=== PATIENT | male | born 1980 | race Caucasian/White ===

== ENCOUNTER 2016-11-18 09:36 | Inpatient (IN) | payer OTHER ==
[2016-11-18 10:16] VITALS: BMI 25.2
--- NOTE | 2016-11-18 17:53 | HP ---
Admission ROS [facility] Chief Complaint: I WANT TO GO TO REHAB Allergies/Adverse Reactions: Allergies Allergy/AdvReac Type Severity Reaction Status Date / Time No Known Allergies Allergy Verified 11/18/16 16:13 History of Present Illness: 35 YEARS OLD MALE WITH LONG HISTORY OF ALCOHOL OPIATE BENZO NICOTINE DEPENDENCE , HAS HEPATITIS C IS ADMITTED TO REHAB Exam Limitations: No Limitations - Ebola screening Have you traveled outside of the country in the last 21 days: No Have you had contact with anyone from an Ebola affected area: No Have you been sick,other than usual withdrawal symptoms: No Do you have a fever: No - Review of Systems Constitutional: Changes in sleep, Weight Stable EENT: reports: No Symptoms Reported Respiratory: reports: No Symptoms reported Cardiac: reports: No Symptoms Reported GI: reports: No Symptoms Reported : reports: No Symptoms Reported, Other (RIGHT KIDNEY 09/2016 "NO" EFFECT ADL'S ) Musculoskeletal: reports: No Symptoms Reported Integumentary: reports: No Symptoms Reported Neuro: reports: No Symptoms reported Endocrine: reports: No Symptoms Reported Hematology: reports: No Symptoms Reported Psychiatric: reports: Judgement Intact, Mood/Affect Appropiate, Orientated x3 Other Systems: Reviewed and Negative Patient History - Patient Medical History Hx Anemia: No Hx Asthma: No Hx Chronic Obstructive Pulmonary Disease (COPD): No Hx Cancer: No Hx Cardiac Disorders: No Hx Congestive Heart Failure: No Hx Hypertension: No Hx Hypercholesterolemia: No Hx Pacemaker: No HX Cerebrovascular Accident: No Hx Seizures: No Hx Dementia: No Hx Diabetes: No Hx Gastrointestinal Disorders: No Hx Liver Disease: No Hx Genitourinary Disorders: No Hx Sexually Transmitted Disorders: No Hx Renal Disease (ESRD): No Hx Thyroid Disease: No Hx Human Immunodeficiency Virus (HIV): No Hx Hepatitis C: Yes Hx Depression: No Hx Suicide Attempt: No Hx Bipolar Disorder: No Hx Schizophrenia: No - Patient Surgical History Past Surgical History: No Hx Neurologic Surgery: No Hx Cataract Extraction: No Hx Cardiac Surgery: No Hx Lung Surgery: No Hx Breast Surgery: No Hx Breast Biopsy: No Hx Abdominal Surgery: No Hx Appendectomy: No Hx Cholecystectomy: No Hx Genitourinary Surgery: No Hx Orthopedic Surgery: No - PPD History Previous Implant?: Yes Documented Results: Negative w/proof Implanted On Prior R Admission?: Yes Date: 04/22/12 PPD to be Administered?: Yes - Smoking Cessation Smoking history: Current every day smoker Have you smoked in the past 12 months: Yes Aproximately how many cigarettes per day: 30 Cigars Per Day: 0 Hx Chewing Tobacco Use: No Initiated information on smoking cessation: Yes 'Breaking Loose' booklet given: 11/18/16 - Substance & Tx. History Hx Alcohol Use: Yes Hx Substance Use: Yes Substance Use Type: Alcohol, Opiates, Tranquilizers Hx Substance Use Treatment: Yes - Substances Abused Alcohol Route: Oral Frequency: Daily Amount used: VOLKA A LITTLE Age of first use: 15 Date of Last Use: 11/07/16 Alprazolam (Xanax) Route: Oral Frequency: Daily Amount used: 14 MG Age of first use: 20 Date of Last Use: 11/07/16 Heroin Route: Injection Frequency: Daily Amount used: 25 BAGS Age of first use: 15 Date of Last Use: 12/05/16 Family Disease History - Family Disease History Family Disease History: CA: Mother (throat ), Other: Father (kidney ) Admission Physical Exam [facility] - Vital Signs Vital Signs: Vital Signs - 24 hr 11/18/16 10:14 Temperature 97.6 F Pulse Rate 81 Respiratory 18 Rate Blood Pressure 107/71 - Physical General Appearance: Yes: No Apparent Distress, Nourished, Appropriately Dressed HEENTM: Yes: Hearing grossly Normal, Normal ENT Inspection, Normocephalic, Normal Voice Respiratory: Yes: Chest Non-Tender, Lungs Clear, Normal Breath Sounds, No Respiratory Distress, No Accessory Muscle Use Neck: Yes: Supple, Trachea in good position Breast: Yes: Breasts Symetrical Cardiology: Yes: Regular Rhythm, Regular Rate, S1, S2 Abdominal: Yes: Non Tender, Soft Genitourinary: Yes: Within Normal Limits Back: Yes: Normal Inspection Musculoskeletal: Yes: full range of Motion, Gait Steady Extremities: Yes: Normal Range of Motion, Non-Tender Neurological: Yes: Fully Oriented, Alert, Motor Strength 5/5, Normal Mood/Affect , Normal Response Integumentary: Yes: Warm, Track Jose Lymphatic: Yes: Within Normal Limits - Diagnostic (1) Alcohol dependence with uncomplicated withdrawal Current Visit: Yes Status: Acute (2) Nicotine dependence Current Visit: Yes Status: Acute Qualifiers: Nicotine product type: cigarettes Substance use status: in withdrawal Qualified Code(s): F17.213 - Nicotine dependence, cigarettes, with withdrawal (3) Sedative, hypnotic or anxiolytic dependence with withdrawal, uncomplicated Current Visit: Yes Status: Acute (4) Hepatitis C antibody test positive Current Visit: Yes Status: Chronic Comment: scheduled for treatment with primary care physician (5) Encounter for monitoring Suboxone maintenance therapy Current Visit: Yes Status: Acute Comment: SUBOXONE 8-2 MG 2.5 FILM PO DAILY VERIFIED BY PHARMACY PACKAGE Cleared for Admission [facility] - Detox or Rehab [facility] Level of Care: Observation Bed Detox Regimen/Protocol: Not Applicable Claeared for Rehab Admission: Yes [facility] Breath Alcohol Content Breath Alcohol Content: 0 Urine Drug Screen - Results Drug Screen Negative: No Urine Drug Screen Results: MDMA-Ecstasy, BZO-Benzodiazepines
[2016-11-18] MEDS ORDERED: IBUPROFEN 400 MG TABLET (FP) PO PRN (17:56)
[2016-11-18] MEDS ORDERED: MAGNESIUM CITRATE 300 ML BOTTLE PO PRN (17:56)
[2016-11-18] MEDS ORDERED: MAG HYDROX/AL HYDROX/SIMETH 30 ML UNIT-DOSE CUP PO PRN (17:56)
[2016-11-18] MEDS ORDERED: LOPERAMIDE HCL 2 MG CAPSULE PO PRN (17:56)
[2016-11-18] MEDS ORDERED: diphenhydrAMINE HCL 50 MG CAPSULE PO PRN (17:56)
[2016-11-18] MEDS ORDERED: guaiFENesin/D-METHORPHAN HB 10 ML UNIT-DOSE CUPS PO PRN (17:56)
[2016-11-18] MEDS ORDERED: ACETAMINOPHEN 325 MG TABLET (FP) PO PRN (17:56)
[2016-11-18] MEDS ORDERED: hydrOXYzine PAMOATE 50 MG CAPSULE (FP) PO PRN (17:56)
[2016-11-18] MEDS ORDERED: MAGNESIUM HYDROX 2400MG/30ML ORAL SUSPENSION 30 ML CUP PO PRN (17:56)
[2016-11-18] MEDS ORDERED: P-EPHED 60MG/TRIPROLIDI 2.5MG TABLET PO PRN (17:56)
[2016-11-18] MEDS ORDERED: MENTHOL/PHENOL 1 EACH UD MM PRN (17:56)
[2016-11-18] MEDS: THIAMINE HCL 100 MG TABLET (FP) PO SCH (21:14)
[2016-11-18 22:53] LABS: URINE APPEARANCE CLEAR; URINE BILIRUBIN NEGATIVE (NEGATIVE); URINE BLOOD NEGATIVE (NEGATIVE); URINE COLOR LTYELLOW; URINE GLUCOSE (UA) NEGATIVE (NEGATIVE); URINE KETONE NEGATIVE (NEGATIVE); URINE LEUK ESTERASE NEGATIVE (NEGATIVE); URINE NITRITE NEGATIVE (NEGATIVE); URINE PROTEIN NEGATIVE (NEGATIVE); URINE UROBILINOGEN NEGATIVE E.U./dl (0.2-1.0)
[2016-11-19] MEDS ORDERED: BUPRENORPHINE/NALOXONE 8 MG/2 MG FILM PACKET ONE (09:09)
[2016-11-19] MEDS ORDERED: BUPRENORPHINE/NALOXONE 8 MG/2 MG FILM PACKET SL SCH (10:00)
[2016-11-19] MEDS ORDERED: BUPRENORPHINE SL SCH (10:00)
[2016-11-19] MEDS ORDERED: NALOXONE BUPRENORPHINE SL SCH (10:00)
[2016-11-19] MEDS ORDERED: NALOXONE SL SCH (10:00)
[2016-11-19] MEDS: NICOTINE 21 MG/24 HOURS TOPICAL PATCH TD SCH (10:15)
[2016-11-19] MEDS: PRENATAL VITAMINS W/ FOLIC ACID TABLET (FP) PO SCH (10:15)
[2016-11-19] MEDS ORDERED: BUPRENORPHINE/NALOXONE 8 MG/2 MG FILM PACKET SL ONE (11:14)
[2016-11-19] MEDS ORDERED: BUPRENORPHINE/NALOXONE 2 MG/0.5 MG FILM PACKET SL ONE (11:15)
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
[2016-11-19 14:55] LABS: MCH 29.3 pg (25.7-33.7); MCHC 32.7 g/dl (32.0-35.9); MEAN CELL VOLUME 89.6 fl (80-96); MEAN PLT VOLUME 7.6 fl (7.5-11.1); PLATELET COUNT 207 K/MM3 (134-434); RDW 15.3 % (11.9-15.9); WHITE BLOOD COUNT 4.2 K/mm3 (4.0-10.0)
--- NOTE | 2016-11-19 15:38 | EKG ---
Test Reason : Blood Pressure : / mmHG Vent. Rate : 083 BPM Atrial Rate : 083 BPM P-R Int : 164 ms QRS Dur : 092 ms QT Int : 358 ms P-R-T Axes : 073 049 073 degrees QTc Int : 420 ms NORMAL SINUS RHYTHM NORMAL ECG NO PREVIOUS ECGS AVAILABLE Confirmed by SUDHA AYALA MD ([id number]) on 11/19/2016 3:37:33 PM Referred By: Confirmed By:SUDHA AYALA MD
[2016-11-19 15:41] LABS: ALBUMIN 3.6 g/dl (3.4-5.0); ALK PHOS 87 U/L (45-117); ANION GAP 9 (8-16); BILIRUBIN,TOTAL 0.3 mg/dL (0.2-1.0); CO2 28 mmol/L (21-32); GLUCOSE,RANDOM 88 mg/dL (74-106); SGOT/AST 22 U/L (15-37); SGPT/ALT 35 U/L (12-78); TOT PROT 6.6 g/dl (6.4-8.2)
[2016-11-19] MEDS: QUEtiapine FUMARATE 100 MG TABLET (FP) PO SCH (21:33)
[2016-11-19] MEDS: THIAMINE HCL 100 MG TABLET (FP) PO SCH (21:33)
[2016-11-19] MEDS: GABAPENTIN 100 MG CAPSULE (FP) PO SCH (21:33)
[2016-11-20] MEDS: BUPRENORPHINE/NALOXONE 8 MG/2 MG FILM PACKET SL SCH ×2 (06:18→14:43)
[2016-11-20] MEDS: NICOTINE 21 MG/24 HOURS TOPICAL PATCH TD SCH (09:47)
[2016-11-20] MEDS: PRENATAL VITAMINS W/ FOLIC ACID TABLET (FP) PO SCH (09:47)
[2016-11-20] MEDS: GABAPENTIN 100 MG CAPSULE (FP) PO SCH ×3 (09:47→21:16)
[2016-11-20] MEDS ORDERED: BUPRENORPHINE/NALOXONE 8 MG/2 MG FILM PACKET SL SCH ×2 (10:00)
[2016-11-20] MEDS ORDERED: BUPRENORPHINE/NALOXONE 2 MG/0.5 MG FILM PACKET SL SCH ×2 (10:00)
--- NOTE | 2016-11-20 13:57 | PN ---
Psychiatric Progress Note Vital Signs: Vital Signs Period Temp Pulse Resp BP Sys/López Pulse Ox Last 24 Hr 98.0 F 62 16-18 125/68 Date of Session: 11/20/16 Chief Complaint:: "progress update" HPI: patient is addressing opioid, sedative hypnotic, nicotine depebndence comorbid mood disorder. ROS: Hep C. Current Medications: Active Medications Generic Name Dose Route Start Last Admin Trade Name Freq PRN Reason Stop Dose Admin Acetaminophen 650 mg 11/18/16 17:56 Tylenol - PO Q4H PRN PAIN Al Hydroxide/Mg Hydroxide 30 ml 11/18/16 17:56 Mylanta Oral Suspension - PO Q6H PRN DYSPEPSIA Buprenorphine/Naloxone 2 each 11/20/16 20:00 Suboxone 2mg/0.5mg Sl Film - SL 11/26/16 19:59 DAILY@2000 [facility] Buprenorphine/Naloxone 1 each 11/20/16 06:00 11/20/16 06:18 Suboxone 8mg/2mg Sl Film - SL 11/26/16 05:59 1 each DAILY@0600 [facility] Administration Buprenorphine/Naloxone 1 each 11/20/16 14:00 Suboxone 8mg/2mg Sl Film - SL 11/26/16 13:59 DAILY@1400 [facility] Diphenhydramine HCl 50 mg 11/18/16 17:56 Benadryl - PO HSMR1 PRN INSOMNIA Eucalyptus/Menthol/Phenol/Sorbitol 1 each 11/18/16 17:56 Cepastat Lozenge - MM Q4H PRN SORE THROAT Gabapentin 200 mg 11/19/16 22:00 11/20/16 09:47 Neurontin - PO 200 mg BID [facility] Administration Guaifenesin 10 ml 11/18/16 17:56 Robitussin Dm - PO Q6H PRN COUGH Hydroxyzine Pamoate 50 mg 11/18/16 17:56 Vistaril - PO Q4H PRN AGITATION Ibuprofen 400 mg 11/18/16 17:56 Motrin - PO Q6H PRN SEVERE PAIN Loperamide HCl 4 mg 11/18/16 17:56 Imodium - PO Q6H PRN DIARRHEA Magnesium Citrate 300 ml 11/18/16 17:56 Citroma - PO Q48H PRN CONSTIPATION Magnesium Hydroxide 30 ml 11/18/16 17:56 Milk Of Magnesia - PO DAILY PRN CONSTIPATION Nicotine 21 mg 11/19/16 10:00 11/20/16 09:47 Nicoderm Patch - TD 21 mg DAILY BR[facility]ON Administration Nicotine Polacrilex 4 mg 11/18/16 17:56 Nicorette Gum - BC Q2H PRN NICOTINE REPLACEMENT RX Multivit/Folic Acid/Iron 1 tab 11/19/16 10:00 11/20/16 09:47 Vitamins (Sjr) - PO 1 tab DAILY BRANDON Administration Pseudoephedrine/Triprolidine 1 combo 11/18/16 17:56 Actifed - PO TID PRN NASAL CONGESTION Quetiapine Fumarate 100 mg 11/19/16 22:00 11/19/16 21:33 Seroquel - PO 100 mg HS BRANDON Administration Thiamine HCl 100 mg 11/18/16 22:00 11/19/16 21:33 Vitamin B1 - PO 100 mg HS BRANDON Administration Medication(s) Change(s): increase Gabapentin 200 mg po tid Current Side Effect: No Lab tests ordered: No Lab tests reviewed: Yes Provider note:: Patient adjusted well to the unit, he is cooperative with unit rules and regulations, he expressed his frustartion about his Hep c and processed this with the patient. Feeling of anxiety predominated in this session. Psychoeducations and supports provided.Treatment plan discussed, patient agreed with the plan, will continue to monitor progress. Total face to face time:: 35 Mental Status Exam - Mental Status Exam Alert and Oriented to: Time, Place, Person Cognitive Function: Grossly Intact Patient Appearance: Well Groomed Mood: Sad, Anxious Affect: Appropriate Patient Behavior: Cooperative Speech Pattern: Clear, Appropriate Voice Loudness: Normal Thought Process: Intact Thought Disorder: Not Present Hallucinations: Denies Suicidal Ideation: Denies Homicidal Ideation: Denies Insight/Judgement: Fair Sleep: Well Appetite: Good Muscle strength/Tone: Normal Gait/Station: Normal Psychiatric Treatment Plan - Problem List (1) Nicotine dependence Current Visit: Yes Qualifiers: Nicotine product type: cigarettes Substance use status: in withdrawal Qualified Code(s): F17.213 - Nicotine dependence, cigarettes, with withdrawal (2) Opioid dependence Current Visit: Yes (3) Sedative, hypnotic or anxiolytic dependence Current Visit: Yes (4) Mood disorder Current Visit: Yes
[2016-11-20] MEDS: BUPRENORPHINE/NALOXONE 2 MG/0.5 MG FILM PACKET SL SCH (19:54)
[2016-11-20] MEDS: QUEtiapine FUMARATE 100 MG TABLET (FP) PO SCH (21:16)
[2016-11-20] MEDS: THIAMINE HCL 100 MG TABLET (FP) PO SCH (21:16)
[2016-11-21] MEDS: BUPRENORPHINE/NALOXONE 8 MG/2 MG FILM PACKET SL SCH ×2 (06:45→14:20)
[2016-11-21] MEDS: GABAPENTIN 100 MG CAPSULE (FP) PO SCH ×3 (06:45→21:03)
[2016-11-21] MEDS: PRENATAL VITAMINS W/ FOLIC ACID TABLET (FP) PO SCH (10:39)
[2016-11-21] MEDS: NICOTINE 21 MG/24 HOURS TOPICAL PATCH TD SCH (10:42)
[2016-11-21] MEDS: BUPRENORPHINE/NALOXONE 2 MG/0.5 MG FILM PACKET SL SCH (21:00)
[2016-11-21] MEDS: THIAMINE HCL 100 MG TABLET (FP) PO SCH (21:03)
[2016-11-21] MEDS: QUEtiapine FUMARATE 100 MG TABLET (FP) PO SCH (21:03)
[2016-11-22] MEDS: GABAPENTIN 100 MG CAPSULE (FP) PO SCH ×3 (06:26→21:25)
[2016-11-22] MEDS: BUPRENORPHINE/NALOXONE 8 MG/2 MG FILM PACKET SL SCH ×2 (06:26→13:16)
[2016-11-22] MEDS: NICOTINE 21 MG/24 HOURS TOPICAL PATCH TD SCH (10:30)
[2016-11-22] MEDS: PRENATAL VITAMINS W/ FOLIC ACID TABLET (FP) PO SCH (10:31)
[2016-11-22] MEDS: BUPRENORPHINE/NALOXONE 2 MG/0.5 MG FILM PACKET SL SCH (20:35)
[2016-11-22] MEDS: QUEtiapine FUMARATE 100 MG TABLET (FP) PO SCH (21:24)
[2016-11-22] MEDS: THIAMINE HCL 100 MG TABLET (FP) PO SCH (21:24)
[2016-11-23] MEDS: GABAPENTIN 100 MG CAPSULE (FP) PO SCH ×3 (06:36→22:11)
[2016-11-23] MEDS: BUPRENORPHINE/NALOXONE 8 MG/2 MG FILM PACKET SL SCH ×2 (06:36→14:11)
[2016-11-23] MEDS: NICOTINE 21 MG/24 HOURS TOPICAL PATCH TD SCH (10:27)
[2016-11-23] MEDS: PRENATAL VITAMINS W/ FOLIC ACID TABLET (FP) PO SCH (10:27)
--- NOTE | 2016-11-23 15:49 | PN ---
S Progress Note Note: patient c/o insonia, racing thoughts, will increase Seroquel 150 mg po hs, continue to monitor progress.
[2016-11-23] MEDS: THIAMINE HCL 100 MG TABLET (FP) PO SCH (21:34)
[2016-11-23] MEDS: QUEtiapine FUMARATE 50 MG TABLET PO SCH (21:34)
[2016-11-23] MEDS: BUPRENORPHINE/NALOXONE 2 MG/0.5 MG FILM PACKET SL SCH (21:35)
[2016-11-24] MEDS: GABAPENTIN 100 MG CAPSULE (FP) PO SCH ×3 (06:43→21:11)
[2016-11-24] MEDS: BUPRENORPHINE/NALOXONE 8 MG/2 MG FILM PACKET SL SCH ×2 (06:44→14:19)
[2016-11-24] MEDS: NICOTINE 21 MG/24 HOURS TOPICAL PATCH TD SCH (09:42)
[2016-11-24] MEDS: PRENATAL VITAMINS W/ FOLIC ACID TABLET (FP) PO SCH (09:42)
[2016-11-24] MEDS: QUEtiapine FUMARATE 50 MG TABLET PO SCH (21:10)
[2016-11-24] MEDS: BUPRENORPHINE/NALOXONE 2 MG/0.5 MG FILM PACKET SL SCH (21:11)
[2016-11-24] MEDS: THIAMINE HCL 100 MG TABLET (FP) PO SCH (21:11)
[2016-11-25] MEDS: BUPRENORPHINE/NALOXONE 8 MG/2 MG FILM PACKET SL SCH ×2 (06:43→14:19)
[2016-11-25] MEDS: GABAPENTIN 100 MG CAPSULE (FP) PO SCH ×3 (06:43→21:49)
[2016-11-25] MEDS: PRENATAL VITAMINS W/ FOLIC ACID TABLET (FP) PO SCH (10:02)
[2016-11-25] MEDS: NICOTINE 21 MG/24 HOURS TOPICAL PATCH TD SCH (10:02)
[2016-11-25] MEDS: QUEtiapine FUMARATE 50 MG TABLET PO SCH (21:49)
[2016-11-25] MEDS: BUPRENORPHINE/NALOXONE 2 MG/0.5 MG FILM PACKET SL SCH (21:50)
[2016-11-25] MEDS: THIAMINE HCL 100 MG TABLET (FP) PO SCH (21:51)
[2016-11-26] MEDS: GABAPENTIN 100 MG CAPSULE (FP) PO SCH ×3 (06:28→21:51)
[2016-11-26] MEDS: BUPRENORPHINE/NALOXONE 8 MG/2 MG FILM PACKET SL SCH ×2 (06:28→14:06)
[2016-11-26] MEDS: PRENATAL VITAMINS W/ FOLIC ACID TABLET (FP) PO SCH (10:06)
[2016-11-26] MEDS: NICOTINE 21 MG/24 HOURS TOPICAL PATCH TD SCH (10:06)
[2016-11-26] MEDS: BUPRENORPHINE/NALOXONE 2 MG/0.5 MG FILM PACKET SL SCH (19:34)
[2016-11-26] MEDS: THIAMINE HCL 100 MG TABLET (FP) PO SCH (21:51)
[2016-11-26] MEDS: QUEtiapine FUMARATE 50 MG TABLET PO SCH (21:51)
[2016-11-27] MEDS: GABAPENTIN 100 MG CAPSULE (FP) PO SCH ×3 (06:23→21:12)
[2016-11-27] MEDS: BUPRENORPHINE/NALOXONE 8 MG/2 MG FILM PACKET SL SCH ×2 (06:23→14:11)
[2016-11-27] MEDS: PRENATAL VITAMINS W/ FOLIC ACID TABLET (FP) PO SCH (10:03)
[2016-11-27] MEDS: NICOTINE 21 MG/24 HOURS TOPICAL PATCH TD SCH (10:04)
[2016-11-27] MEDS: NICOTINE POLACRILEX 4 MG GUM BC PRN ×2 (10:05→15:39)
[2016-11-27] MEDS: BUPRENORPHINE/NALOXONE 2 MG/0.5 MG FILM PACKET SL SCH (20:05)
[2016-11-27] MEDS: THIAMINE HCL 100 MG TABLET (FP) PO SCH (21:12)
[2016-11-27] MEDS: QUEtiapine FUMARATE 50 MG TABLET PO SCH (21:13)
[2016-11-28] MEDS: BUPRENORPHINE/NALOXONE 8 MG/2 MG FILM PACKET SL SCH ×2 (06:33→14:10)
[2016-11-28] MEDS: GABAPENTIN 100 MG CAPSULE (FP) PO SCH ×3 (06:33→21:24)
[2016-11-28] MEDS: NICOTINE POLACRILEX 4 MG GUM BC PRN ×4 (08:56→21:27)
[2016-11-28] MEDS: PRENATAL VITAMINS W/ FOLIC ACID TABLET (FP) PO SCH (10:35)
[2016-11-28] MEDS: NICOTINE 21 MG/24 HOURS TOPICAL PATCH TD SCH (10:35)
[2016-11-28] MEDS: BUPRENORPHINE/NALOXONE 2 MG/0.5 MG FILM PACKET SL SCH (21:24)
[2016-11-28] MEDS: QUEtiapine FUMARATE 50 MG TABLET PO SCH (21:24)
[2016-11-28] MEDS: THIAMINE HCL 100 MG TABLET (FP) PO SCH (21:24)
[2016-11-29] MEDS: BUPRENORPHINE/NALOXONE 8 MG/2 MG FILM PACKET SL SCH ×2 (06:13→13:14)
[2016-11-29] MEDS: GABAPENTIN 100 MG CAPSULE (FP) PO SCH ×3 (06:14→21:18)
[2016-11-29] MEDS: NICOTINE POLACRILEX 4 MG GUM BC PRN ×2 (08:45→21:21)
[2016-11-29] MEDS: NICOTINE 21 MG/24 HOURS TOPICAL PATCH TD SCH (10:30)
[2016-11-29] MEDS: PRENATAL VITAMINS W/ FOLIC ACID TABLET (FP) PO SCH (10:30)
[2016-11-29] MEDS: QUEtiapine FUMARATE 50 MG TABLET PO SCH (21:18)
[2016-11-29] MEDS: BUPRENORPHINE/NALOXONE 2 MG/0.5 MG FILM PACKET SL SCH (21:19)
[2016-11-29] MEDS: THIAMINE HCL 100 MG TABLET (FP) PO SCH (21:19)
[2016-11-30] MEDS: BUPRENORPHINE/NALOXONE 8 MG/2 MG FILM PACKET SL SCH ×2 (06:04→13:04)
[2016-11-30] MEDS: GABAPENTIN 100 MG CAPSULE (FP) PO SCH ×3 (06:04→21:16)
[2016-11-30] MEDS: NICOTINE POLACRILEX 4 MG GUM BC PRN (09:00)
[2016-11-30] MEDS: NICOTINE 21 MG/24 HOURS TOPICAL PATCH TD SCH (09:35)
[2016-11-30] MEDS: PRENATAL VITAMINS W/ FOLIC ACID TABLET (FP) PO SCH (09:35)
[2016-11-30] MEDS: DOCUSATE SODIUM 100 MG CAPSULE (FP) PO SCH ×2 (13:03→21:16)
[2016-11-30] MEDS: BUPRENORPHINE/NALOXONE 2 MG/0.5 MG FILM PACKET SL SCH (21:00)
[2016-11-30] MEDS: THIAMINE HCL 100 MG TABLET (FP) PO SCH (21:15)
[2016-11-30] MEDS: QUEtiapine FUMARATE 50 MG TABLET PO SCH (21:16)
[2016-12-01] MEDS: BUPRENORPHINE/NALOXONE 8 MG/2 MG FILM PACKET SL SCH ×2 (06:35→14:08)
[2016-12-01] MEDS: DOCUSATE SODIUM 100 MG CAPSULE (FP) PO SCH ×3 (06:35→21:41)
[2016-12-01] MEDS: GABAPENTIN 100 MG CAPSULE (FP) PO SCH ×3 (06:35→21:41)
[2016-12-01] MEDS: PRENATAL VITAMINS W/ FOLIC ACID TABLET (FP) PO SCH (09:28)
[2016-12-01] MEDS: NICOTINE 21 MG/24 HOURS TOPICAL PATCH TD SCH (09:28)
[2016-12-01] MEDS: NICOTINE POLACRILEX 4 MG GUM BC PRN (09:29)
[2016-12-01] MEDS: BUPRENORPHINE/NALOXONE 2 MG/0.5 MG FILM PACKET SL SCH (21:00)
[2016-12-01] MEDS: QUEtiapine FUMARATE 50 MG TABLET PO SCH (21:41)
[2016-12-01] MEDS: THIAMINE HCL 100 MG TABLET (FP) PO SCH (21:41)
[2016-12-02] MEDS: DOCUSATE SODIUM 100 MG CAPSULE (FP) PO SCH ×3 (06:34→21:05)
[2016-12-02] MEDS: GABAPENTIN 100 MG CAPSULE (FP) PO SCH ×3 (06:34→21:05)
[2016-12-02] MEDS: BUPRENORPHINE/NALOXONE 8 MG/2 MG FILM PACKET SL SCH ×2 (06:35→14:18)
[2016-12-02] MEDS: NICOTINE POLACRILEX 4 MG GUM BC PRN (08:29)
[2016-12-02] MEDS: PRENATAL VITAMINS W/ FOLIC ACID TABLET (FP) PO SCH (10:01)
[2016-12-02] MEDS: NICOTINE 21 MG/24 HOURS TOPICAL PATCH TD SCH (10:01)
[2016-12-02] MEDS: BUPRENORPHINE/NALOXONE 2 MG/0.5 MG FILM PACKET SL SCH (21:00)
[2016-12-02] MEDS: THIAMINE HCL 100 MG TABLET (FP) PO SCH (21:05)
[2016-12-02] MEDS: QUEtiapine FUMARATE 50 MG TABLET PO SCH (21:06)
[2016-12-03] MEDS: BUPRENORPHINE/NALOXONE 8 MG/2 MG FILM PACKET SL SCH (06:09)
[2016-12-03] MEDS: GABAPENTIN 100 MG CAPSULE (FP) PO SCH (06:09)
[2016-12-03] MEDS: DOCUSATE SODIUM 100 MG CAPSULE (FP) PO SCH (06:09)
[2016-12-03 07:17] VITALS: BP 100/63; PULSE 58; TEMP 97.5
[2016-12-03] MEDS: PRENATAL VITAMINS W/ FOLIC ACID TABLET (FP) PO SCH (09:53)
[2016-12-03] MEDS: NICOTINE 21 MG/24 HOURS TOPICAL PATCH TD SCH (09:53)
--- NOTE | 2016-12-03 10:02 | PN ---
Psychiatric Progress Note Vital Signs: Vital Signs Period Temp Pulse Resp BP Sys/López Pulse Ox Last 24 Hr 97.5 F 58 16-18 100/63 Date of Session: 12/03/16 Chief Complaint:: discharge visit HPI: The patient has addressed opioid, sedative hypnotic, nicotine depebndence comorbid mood disorder. ROS: Hep C. Current Medications: Active Medications Generic Name Dose Route Start Last Admin Trade Name Freq PRN Reason Stop Dose Admin Acetaminophen 650 mg 11/18/16 17:56 11/21/16 10:40 Tylenol - PO 650 mg Q4H PRN Administration PAIN Al Hydroxide/Mg Hydroxide 30 ml 11/18/16 17:56 Mylanta Oral Suspension - PO Q6H PRN DYSPEPSIA Buprenorphine/Naloxone 2 each 11/26/16 20:00 12/02/16 21:00 Suboxone 2mg/0.5mg Sl Film - SL 12/03/16 19:59 2 each DAILY@2000 BR[facility]ON Administration Buprenorphine/Naloxone 1 each 11/26/16 06:00 12/03/16 06:09 Suboxone 8mg/2mg Sl Film - SL 1 each DAILY@0600 [facility] Administration Buprenorphine/Naloxone 1 each 11/26/16 14:00 12/02/16 14:18 Suboxone 8mg/2mg Sl Film - SL 12/03/16 13:59 1 each DAILY@1400 [facility] Administration Diphenhydramine HCl 50 mg 11/18/16 17:56 Benadryl - PO HSMR1 PRN INSOMNIA Docusate Sodium 100 mg 11/30/16 14:00 12/03/16 06:09 Colace - PO 100 mg TID BRANDON Administration Eucalyptus/Menthol/Phenol/Sorbitol 1 each 11/18/16 17:56 Cepastat Lozenge - MM Q4H PRN SORE THROAT Gabapentin 200 mg 11/20/16 14:00 12/03/16 06:09 Neurontin - PO 200 mg TID BRANDON Administration Guaifenesin 10 ml 11/18/16 17:56 Robitussin Dm - PO Q6H PRN COUGH Hydroxyzine Pamoate 50 mg 11/18/16 17:56 11/21/16 10:38 Vistaril - PO 50 mg Q4H PRN Administration AGITATION Ibuprofen 400 mg 11/18/16 17:56 Motrin - PO Q6H PRN SEVERE PAIN Loperamide HCl 4 mg 11/18/16 17:56 Imodium - PO Q6H PRN DIARRHEA Magnesium Citrate 300 ml 11/18/16 17:56 Citroma - PO Q48H PRN CONSTIPATION Magnesium Hydroxide 30 ml 11/18/16 17:56 Milk Of Magnesia - PO DAILY PRN CONSTIPATION Nicotine 21 mg 11/19/16 10:00 12/03/16 09:53 Nicoderm Patch - TD Not Given DAILY BRANDON Nicotine Polacrilex 4 mg 11/18/16 17:56 12/02/16 08:29 Nicorette Gum - BC 4 mg Q2H PRN Administration NICOTINE REPLACEMENT RX Multivit/Folic Acid/Iron 1 tab 11/19/16 10:00 12/03/16 09:53 Vitamins (Sjr) - PO Not Given DAILY BRANDON Pseudoephedrine/Triprolidine 1 combo 11/18/16 17:56 Actifed - PO TID PRN NASAL CONGESTION Quetiapine Fumarate 150 mg 11/23/16 22:00 12/02/16 21:06 Seroquel - PO 150 mg HS BRANDON Administration Thiamine HCl 100 mg 11/18/16 22:00 12/02/16 21:05 Vitamin B1 - PO 100 mg HS BRANDON Administration Current Side Effect: No Lab tests ordered: No Lab tests reviewed: Yes Provider note:: The patient has completed his treatment and met this goals, will continue to address his issues at [facility] outpatient treatment program. Patient gained insights into his addiction and motivated to continue maintain abstinence. Patient focused on importance of changing attitude for utilization of supports to prevent relapses. Patient responded well to medication management, reports he feels better, hopeful and energetic. Scripts provided, patient was encouraged to use alternative ways to ccope with the stressors. Patient is stable for discharge. Total face to face time:: 35 Mental Status Exam - Mental Status Exam Alert and Oriented to: Time, Place, Person Cognitive Function: Good Patient Appearance: Well Groomed Mood: Hopeful Affect: Appropriate, Mood Congruent Patient Behavior: Appropriate, Cooperative Speech Pattern: Clear, Appropriate Voice Loudness: Normal Thought Process: Intact, Goal Oriented Thought Disorder: Not Present Hallucinations: Denies Suicidal Ideation: Denies Homicidal Ideation: Denies Insight/Judgement: Fair Sleep: Well Appetite: Good Muscle strength/Tone: Normal Gait/Station: Normal Psychiatric Treatment Plan - Problem List (1) Nicotine dependence Current Visit: Yes Qualifiers: Nicotine product type: cigarettes Substance use status: in withdrawal Qualified Code(s): F17.213 - Nicotine dependence, cigarettes, with withdrawal (2) Opioid dependence Current Visit: Yes (3) Sedative, hypnotic or anxiolytic dependence Current Visit: Yes (4) Mood disorder Current Visit: Yes
== END 2016-12-03 10:15 | disposition home or self-care (01) | DRG 772 ==
LOC: YASAS 09:36 → Y5N 16:27
PROVIDERS: ADMIT Psychiatry & Neurology Psychiatry; ATTEND Psychiatry & Neurology Psychiatry
PROC: HZ42ZZZ Group Counseling for Substance Abuse Treatment, Cognitive-Behavioral (ICD-10-PCS; principal; 2016-12-03)
DX: F11.20 Opioid dependence, uncomplicated (principal); F13.20 Sedative, hypnotic or anxiolytic dependence, uncomplicated; F17.213 Nicotine dependence, cigarettes, with withdrawal; F33.9 Major depressive disorder, recurrent, unspecified; B18.2 Chronic viral hepatitis C
CPT/HCPCS: 36415; 80053; 81003; 85027; 86593; 93005; 93010

== ENCOUNTER 2017-03-04 12:30 | Inpatient (IN) | payer OTHER ==
[2017-03-04 14:04] VITALS: BMI 25.8
--- NOTE | 2017-03-04 15:18 | HP ---
COWS - Scale Resting Pulse: 1= NC 81-100 Sweatin=Flushed/Facial Moisture Restless Observation: 3= Extraneous Movement Pupil Size: 2= Moderately Dilated Bone or Joint Aches: 2= Severe Diffuse Aches Runny Nose/ Eye Tearin= Runny Nose/Eyes GI Upset > 30mins: 3= Vomiting/Diarrhea Tremor Observation: 2= Slight Tremor Visible Yawning Observation: 2= >3x During Session Anxiety or Irritability: 2=Irritable/Anxious Goose Flesh Skin: 0=Smooth Skin COWS Score: 21 CIWA Score - CIWA Score Nausea/Vomitin Muscle Tremors: 3 Anxiety: 3 Agitation: 3 Paroxysmal Sweats: 2 Orientation: 0-Oriented Tacttile Disturbances: 2-Mild Itch/Numbness/Burn Auditory Disturbances: 2-Mild Harshness/Frighten Visual Disturbances: 2-Mild Sensitivity Headache: 3-Moderate CIWA-Ar Total Score: 23 Admission ROS [facility] - HPI Chief Complaint: i need help to stop using heroin,alcohol,xanax Allergies/Adverse Reactions: Allergies Allergy/AdvReac Type Severity Reaction Status Date / Time No Known Allergies Allergy Verified 03/04/17 15:06 History of Present Illness: this 36 years old male with heroin,alcohol,xanax,seeking [facility] for detox,last treatment in rehab [facility] 11/18/16 to 12/03/16 syncope alcohol and drug related several admissions in detox but relapsed longest period of sobriety Exam Limitations: No Limitations - Ebola screening Have you traveled outside of the country in the last 21 days: No Have you had contact with anyone from an Ebola affected area: No Have you been sick,other than usual withdrawal symptoms: No Do you have a fever: No - Review of Systems Constitutional: Chills, Diaphoresis, Loss of Appetite, Malaise, Night Sweats, Changes in sleep, Weakness, Unintentional Wgt. Loss EENT: reports: Tearing, Nose Congestion Respiratory: reports: No Symptoms reported Cardiac: reports: Palpitations GI: reports: Diarrhea, Nausea, Vomiting, Abdominal cramping : reports: No Symptoms Reported Musculoskeletal: reports: Back Pain, Joint Pain, Muscle Pain, Joint Stiffness Integumentary: reports: Dryness Neuro: reports: Headache, Tremors Endocrine: reports: No Symptoms Reported Hematology: reports: No Symptoms Reported Psychiatric: reports: No Sypmtoms Reported, Judgement Intact, Mood/Affect Appropiate, other (insomnia) Patient History - Patient Medical History Hx Anemia: No Hx Asthma: No Hx Chronic Obstructive Pulmonary Disease (COPD): No Hx Cancer: No Hx Cardiac Disorders: No Hx Congestive Heart Failure: No Hx Hypertension: No Hx Hypercholesterolemia: No Hx Pacemaker: No HX Cerebrovascular Accident: No Hx Seizures: No Hx Dementia: No Hx Diabetes: No Hx Gastrointestinal Disorders: No Hx Liver Disease: No Hx Genitourinary Disorders: No Hx Sexually Transmitted Disorders: No Hx Renal Disease (ESRD): No Hx Thyroid Disease: No Hx Human Immunodeficiency Virus (HIV): No Hx Hepatitis C: Yes (no treatment) Hx Depression: No Hx Suicide Attempt: No Hx Bipolar Disorder: No Hx Schizophrenia: No Other Medical History: insomnia,no suicidal,no homicidal - Patient Surgical History Past Surgical History: No Hx Neurologic Surgery: No Hx Cataract Extraction: No Hx Cardiac Surgery: No Hx Lung Surgery: No Hx Breast Surgery: No Hx Breast Biopsy: No Hx Abdominal Surgery: No Hx Appendectomy: No Hx Cholecystectomy: No Hx Genitourinary Surgery: No Hx Section: No Hx Orthopedic Surgery: No Anesthesia Reaction: No - PPD History Previous Implant?: Yes Date: 11/20/16 Results: 0 mm PPD to be Administered?: No - Smoking Cessation Smoking history: Current every day smoker Have you smoked in the past 12 months: Yes Aproximately how many cigarettes per day: 20 Cigars Per Day: 0 Hx Chewing Tobacco Use: No Initiated information on smoking cessation: Yes 'Breaking Loose' booklet given: 03/04/17 - Substance & Tx. History Hx Alcohol Use: Yes Hx Substance Use: Yes Substance Use Type: Alcohol, Heroin, Tranquilizers Hx Substance Use Treatment: Yes (reha at [facility] to 12/03/16) - Substances Abused Heroin Route: Injection Frequency: Daily Amount used: 30 bags Age of first use: 11 Date of Last Use: 03/02/17 Alprazolam (Xanax) Route: Oral Frequency: Daily Amount used: 6-8mg Age of first use: 21 Date of Last Use: 03/02/17 Alcohol Route: Oral Frequency: Daily Amount used: 2 pints vodka/ 12 beer Age of first use: 16 Date of Last Use: 03/04/17 Family Disease History - Family Disease History Family Disease History: CA: Mother (throat ), Other: Father (kidney ) Admission Physical Exam [facility] - Vital Signs Vital Signs: Vital Signs - 24 hr 03/04/17 13:55 Temperature 96.8 F L Pulse Rate 90 Respiratory 17 Rate Blood Pressure 115/72 - Physical General Appearance: Yes: Moderate Distress, Tremorous, Irritable, Sweating, Anxious HEENTM: Yes: Hearing grossly Normal, Normal ENT Inspection, [place], Pharynx Normal Respiratory: Yes: Lungs Clear, Normal Breath Sounds, No Respiratory Distress Neck: Yes: Within Normal Limits, Supple, Trachea in good position Breast: Yes: Within Normal Limits Cardiology: Yes: Within Normal Limits, Regular Rhythm, Regular Rate, S1, S2 Abdominal: Yes: Within Normal Limits, Normal Bowel Sounds, Non Tender, Soft Genitourinary: Yes: Within Normal Limits Back: Yes: Within Normal Limits, Normal Inspection, Muscle Spasm Musculoskeletal: Yes: full range of Motion, Back pain, Joint Stiffness, Muscle Pain Extremities: Yes: Normal Range of Motion, Tremors Neurological: Yes: hospital laboratory technician II-XII NML intact, Fully Oriented, Alert, Motor Strength 5/5 Integumentary: Yes: Dry Lymphatic: Yes: Within Normal Limits - Diagnostic (1) Alcohol dependence with uncomplicated withdrawal Current Visit: No Status: Acute (2) Nicotine dependence Current Visit: No Status: Acute Qualifiers: Nicotine product type: cigarettes Substance use status: in withdrawal Qualified Code(s): F17.213 - Nicotine dependence, cigarettes, with withdrawal (3) Opioid dependence with withdrawal Current Visit: No Status: Acute (4) Sedative, hypnotic or anxiolytic dependence Current Visit: No Status: Acute (5) Weight loss Current Visit: No Status: Acute Comment: ensure (6) Hepatitis C antibody test positive Current Visit: No Status: Chronic Comment: scheduled for treatment with primary care physician (7) Depression (emotion) Current Visit: No Status: Suspected Qualifiers: Depression Type: dysthymia Qualified Code(s): F34.1 - Dysthymic disorder Comment: insomnia Cleared for Admission [facility] - Detox or Rehab [facility] Level of Care: Medically Managed Detox Regimen/Protocol: Methadone/Valium [facility] Breath Alcohol Content Breath Alcohol Content: 0.143 Urine Drug Screen - Results Drug Screen Negative: No Urine Drug Screen Results: ROMAIN-Cocaine, OPI-Opiates, BZO-Benzodiazepines
[2017-03-04] MEDS ORDERED: MAG HYDROX/AL HYDROX/SIMETH 30 ML UNIT-DOSE CUP PO PRN (15:34)
[2017-03-04] MEDS ORDERED: MAGNESIUM CITRATE 300 ML BOTTLE PO PRN (15:34)
[2017-03-04] MEDS ORDERED: P-EPHED 60MG/TRIPROLIDI 2.5MG TABLET PO PRN (15:34)
[2017-03-04] MEDS ORDERED: MAGNESIUM HYDROX 2400MG/30ML ORAL SUSPENSION 30 ML CUP PO PRN (15:34)
[2017-03-04] MEDS ORDERED: MENTHOL/PHENOL 1 EACH UD MM PRN (15:34)
[2017-03-04] MEDS ORDERED: ACETAMINOPHEN 325 MG TABLET (FP) PO PRN (15:34)
[2017-03-04] MEDS ORDERED: guaiFENesin/D-METHORPHAN HB 10 ML UNIT-DOSE CUPS PO PRN (15:34)
[2017-03-04] MEDS ORDERED: LOPERAMIDE HCL 2 MG CAPSULE PO PRN (15:34)
[2017-03-04] MEDS ORDERED: IBUPROFEN 400 MG TABLET (FP) PO PRN (15:34)
[2017-03-04] MEDS ORDERED: hydrOXYzine PAMOATE 50 MG CAPSULE (FP) PO PRN (15:40)
[2017-03-04] MEDS ORDERED: METHADONE HCL 10 MG TABLET (FOR DETOX USE ONLY) PO ONE ×2 (16:45→23:00)
[2017-03-04] MEDS ORDERED: diazePAM 5 MG TABLET PO ONE (16:45)
[2017-03-04 20:54] LABS: URINE APPEARANCE CLEAR; URINE BILIRUBIN NEGATIVE (NEGATIVE); URINE BLOOD NEGATIVE (NEGATIVE); URINE COLOR LTYELLOW; URINE GLUCOSE (UA) NEGATIVE (NEGATIVE); URINE KETONE NEGATIVE (NEGATIVE); URINE LEUK ESTERASE NEGATIVE (NEGATIVE); URINE NITRITE NEGATIVE (NEGATIVE); URINE PROTEIN NEGATIVE (NEGATIVE); URINE UROBILINOGEN NEGATIVE E.U./dl (0.2-1.0)
[2017-03-04] MEDS: THIAMINE HCL 100 MG TABLET (FP) PO SCH (22:33)
[2017-03-04] MEDS: diazePAM 5 MG TABLET PO SCH (22:33)
[2017-03-04] MEDS: cloNIDine HCL 0.1 MG TABLET PO SCH (22:33)
[2017-03-05] MEDS: diazePAM 5 MG TABLET PO SCH ×3 (06:03→22:24)
[2017-03-05] MEDS: CYCLOBENZAPRINE HCL 10 MG TABLET (FP) PO PRN (06:03)
--- NOTE | 2017-03-05 09:38 | CONSULT ---
[facility] Psychiatric Consult - Data Date of interview: 03/05/17 Admission source: [facility] Identifying data: Readmission to [facility] for this 36 y/o [place]-born male seeking detox treatment for heroin,xanax and alcohol dependence.Patient is single without children,domiciled and employed. Substance Abuse History: - Smoking Cessation. Smoking history: Current every day smoker. Have you smoked in the past 12 months: Yes. Aproximately how many cigarettes per day: 20. Cigars Per Day: 0. Hx Chewing Tobacco Use: No. Initiated information on smoking cessation: Yes. 'Breaking Loose' booklet given : 03/04/17. - Substance & Tx. History. Hx Alcohol Use: Yes. Hx Substance Use : Yes. Substance Use Type: Alcohol, Heroin, Tranquilizers. Hx Substance Use Treatment: Yes (reha at [facility] to 12/03/16). - Substances Abused. Heroin. Route: Injection. Frequency: Daily. Amount used: 30 bags. Age of first use: 11. Date of Last Use: 03/02/17. Alprazolam (Xanax). Route: Oral. Frequency: Daily. Amount used: 6-8mg. Age of first use: 21. Date of Last Use: 03/02/17. Alcohol. Route: Oral. Frequency: Daily. Amount used: 2 pints vodka/ 12 beer. Age of first use: 16. Date of Last Use: 03/04/17. Confirmed by patient. Medical History: Hepatitis C. Psychiatric History: Patient denies history of mental illness.Mr Zamudio reports that he is prescribed seroquel for insomnia (started at [facility] at a previous admission).No OPD care.Patient denies history of suicide attempts. Physical/Sexual Abuse/Trauma History: Patient denies. Additional Comment: Urine Drug Screen Results: ROMAIN-Cocaine, OPI-Opiates, BZO- Benzodiazepines.Noted. Mental Status Exam - Mental Status Exam Alert and Oriented to: Time, Place, Person Cognitive Function: Good Patient Appearance: Unkempt, Disheveled Mood: Nervous, Withdrawn, Irritable Affect: Mood Congruent Patient Behavior: Fatigued, Cooperative (superficially) Speech Pattern: Clear Voice Loudness: Normal Thought Process: Goal Oriented Thought Disorder: Not Present Hallucinations: Denies Suicidal Ideation: Denies Homicidal Ideation: Denies Insight/Judgement: Poor Sleep: Poorly, Difficulty falling asleep Appetite: Good Muscle strength/Tone: Normal Gait/Station: Normal Psychiatric Findings - Problem List ([place] 1, 2,3) (1) Alcohol dependence with uncomplicated withdrawal Current Visit: Yes Status: Acute (2) Opioid dependence with withdrawal Current Visit: Yes Status: Acute (3) Sedative, hypnotic or anxiolytic dependence with withdrawal, uncomplicated Current Visit: Yes Status: Acute (4) Nicotine dependence Current Visit: Yes Status: Acute Qualifiers: Nicotine product type: cigarettes Substance use status: in withdrawal Qualified Code(s): F17.213 - Nicotine dependence, cigarettes, with withdrawal (5) Substance induced mood disorder Current Visit: Yes Status: Acute (6) Hepatitis C antibody test positive Current Visit: Yes Status: Chronic Comment: scheduled for treatment with primary care physician (7) Insomnia Current Visit: Yes Status: Acute - Initial Treatment Plan Initial Treatment Plan: Psychoeducation.Detoxification.Seroquel 100 mg po hs.Side effects/benefits discussed with patient.He is in agreement with this careplan.
--- NOTE | 2017-03-05 09:47 | EKG ---
Test Reason : Blood Pressure : / mmHG Vent. Rate : 068 BPM Atrial Rate : 068 BPM P-R Int : 158 ms QRS Dur : 096 ms QT Int : 400 ms P-R-T Axes : 041 058 066 degrees QTc Int : 425 ms NORMAL SINUS RHYTHM INCOMPLETE RBBB WHEN COMPARED WITH ECG OF 18-NOV-2016 23:20, NO SIGNIFICANT CHANGE WAS FOUND Confirmed by KEVIN ROA MD ([id number]) on 03/05/2017 9:47:17 AM Referred By: Sb Jorgensen Confirmed By:KEVIN ROA MD
[2017-03-05] MEDS ORDERED: METHADONE HCL 10 MG TABLET (FOR DETOX USE ONLY) PO SCH (10:00)
[2017-03-05 10:01] LABS: MCH 29.9 pg (25.7-33.7); MCHC 33.3 g/dl (32.0-35.9); MEAN CELL VOLUME 89.9 fl (80-96); MEAN PLT VOLUME 8.1 fl (7.5-11.1); PLATELET COUNT 170 K/MM3 (134-434); RDW 15.8 % (11.9-15.9); WHITE BLOOD COUNT 4.3 K/mm3 (4.0-10.0)
[2017-03-05] MEDS: NICOTINE 21 MG/24 HOURS TOPICAL PATCH TD SCH (10:29)
[2017-03-05] MEDS: diazePAM 5 MG TABLET PO PRN ×2 (10:29→16:51)
[2017-03-05] MEDS: PRENATAL VITAMINS W/ FOLIC ACID TABLET (FP) PO SCH (10:29)
[2017-03-05] MEDS: cloNIDine HCL 0.1 MG TABLET PO SCH ×2 (10:29→22:24)
[2017-03-05 11:07] LABS: ALBUMIN 3.6 g/dl (3.4-5.0); ALK PHOS 89 U/L (45-117); ANION GAP 8 (8-16); BILIRUBIN,TOTAL 0.7 mg/dL (0.2-1.0); CALCIUM 8.9 mg/dL (8.5-10.1); CO2 26 mmol/L (21-32); CREATININE 0.9 mg/dL (0.7-1.3); GLUCOSE,RANDOM 93 mg/dL (74-106); SGOT/AST 16 U/L (15-37); SGPT/ALT 20 U/L (12-78); TOT PROT 6.5 g/dl (6.4-8.2)
--- NOTE | 2017-03-05 11:13 | PN ---
[facility] CIWA - CIWA Score Nausea/Vomitin-No Nausea/No Vomiting Muscle Tremors: 4-Moderate,w/Arms Extend Anxiety: 4-Mod. Anxious/Guarded Agitation: 4-Moderately Restless Paroxysmal Sweats: 1-Minimal Palms Moist Orientation: 0-Oriented Tacttile Disturbances: 3-Moderate Itch/Numb/Burn Auditory Disturbances: 0-None Visual Disturbances: 0-None Headache: 0-None Present CIWA-Ar Total Score: 16 S COWS - Scale Resting Pulse: 0= [place] 80 or Below Sweatin= Chills/Flushing Restless Observation: 3= Extraneous Movement Pupil Size: 2= Moderately Dilated Bone or Joint Aches: 4=Acute Joint/Muscle Pain Runny Nose/ Eye Tearin= Nasal Congestion GI Upset > 30mins: 1= Stomach Cramp Tremor Observation of Outstretched Hands: 1= Tremor [place], Not Seen Yawning Observation: 1= 1-2x During Session Anxiety or Irritability: 2=Irritable/Anxious Goose Flesh Skin: 0=Smooth Skin COWS Score: 16 [facility] Progress Note (SOAP) Subjective: ANXIETY,IRRITABILITY SWEATS,/CHILLS,INTERMITTENT SLEEP. Objective: 03/05/17 11:12 Vital Signs Temperature 97.4 F L 03/05/17 09:58 Pulse Rate 60 03/05/17 09:58 Respiratory Rate 20 03/05/17 09:58 Blood Pressure 112/79 03/05/17 09:58 O2 Sat by Pulse Oximetry (%) Laboratory Last Values WBC 4.3 K/mm3 (4.0-10.0) 03/05/17 07:00 RBC 5.00 M/mm3 (4.00-5.60) 03/05/17 07:00 Hgb 15.0 GM/dL (11.7-16.9) D 03/05/17 07:00 Hct 44.9 % (35.4-49) 03/05/17 07:00 MCV 89.9 fl (80-96) 03/05/17 07:00 MCHC 33.3 g/dl (32.0-35.9) 03/05/17 07:00 RDW 15.8 % (11.9-15.9) 03/05/17 07:00 Plt Count 170 K/MM3 (134-434) 03/05/17 07:00 MPV 8.1 fl (7.5-11.1) 03/05/17 07:00 Sodium 138 mmol/L (136-145) 03/05/17 07:00 Potassium 4.3 mmol/L (3.5-5.1) 03/05/17 07:00 Chloride 104 mmol/L (98-107) 03/05/17 07:00 Carbon Dioxide 26 mmol/L (21-32) 03/05/17 07:00 Anion Gap 8 (8-16) 03/05/17 07:00 BUN 13 mg/dL (7-18) D 03/05/17 07:00 Creatinine 0.9 mg/dL (0.7-1.3) 03/05/17 07:00 Creat Clearance w eGFR > 60 (>60) 03/05/17 07:00 Random Glucose 93 mg/dL (74-106) 03/05/17 07:00 Calcium 8.9 mg/dL (8.5-10.1) 03/05/17 07:00 Total Bilirubin 0.7 mg/dL (0.2-1.0) D 03/05/17 07:00 AST 16 U/L (15-37) D 03/05/17 07:00 ALT 20 U/L (12-78) D 03/05/17 07:00 Alkaline Phosphatase 89 U/L (45-117) 03/05/17 07:00 Total Protein 6.5 g/dl (6.4-8.2) 03/05/17 07:00 Albumin 3.6 g/dl (3.4-5.0) 03/05/17 07:00 Urine Color Ltyellow 03/04/17 20:39 Urine Appearance Clear 03/04/17 20:39 Urine pH 5.0 (5.0-8.0) 03/04/17 20:39 Ur Specific [place] 1.015 (1.005-1.025) 03/04/17 20:39 Urine Protein Negative (NEGATIVE) 03/04/17 20:39 Urine Glucose (UA) Negative (NEGATIVE) 03/04/17 20:39 Urine Ketones Negative (NEGATIVE) 03/04/17 20:39 Urine Blood Negative (NEGATIVE) 03/04/17 20:39 Urine Nitrite Negative (NEGATIVE) 03/04/17 20:39 Urine Bilirubin Negative (NEGATIVE) 03/04/17 20:39 Urine Urobilinogen Negative E.U./dl (0.2-1.0) 03/04/17 20:39 Ur Leukocyte Esterase Negative (NEGATIVE) 03/04/17 20:39 Assessment: 03/05/17 11:12 WITHDRAWAL SX Plan: CONTINUE DETOX INCREASE PO FLUIDS
[2017-03-05] MEDS: QUEtiapine FUMARATE 100 MG TABLET (FP) PO SCH (22:24)
[2017-03-05] MEDS: THIAMINE HCL 100 MG TABLET (FP) PO SCH (22:24)
[2017-03-06] MEDS: diazePAM 5 MG TABLET PO PRN ×3 (05:47→17:41)
[2017-03-06] MEDS: diazePAM 5 MG TABLET PO SCH ×2 (10:19→22:32)
[2017-03-06] MEDS: PRENATAL VITAMINS W/ FOLIC ACID TABLET (FP) PO SCH (10:19)
[2017-03-06] MEDS: NICOTINE 21 MG/24 HOURS TOPICAL PATCH TD SCH (10:19)
[2017-03-06] MEDS: cloNIDine HCL 0.1 MG TABLET PO SCH ×2 (10:19→22:31)
[2017-03-06] MEDS: METHADONE HCL 5 MG TABLET (FOR DETOX USE ONLY) PO SCH (10:19)
[2017-03-06] MEDS: NICOTINE POLACRILEX 2 MG GUM BC PRN ×3 (10:21→17:42)
--- NOTE | 2017-03-06 18:50 | PN ---
[facility] CIWA - CIWA Score Nausea/Vomitin-No Nausea/No Vomiting Muscle Tremors: 4-Moderate,w/Arms Extend Anxiety: 4-Mod. Anxious/Guarded Agitation: 1-Slight > Activity Paroxysmal Sweats: 3 Orientation: 0-Oriented Tacttile Disturbances: 3-Moderate Itch/Numb/Burn Auditory Disturbances: 0-None Visual Disturbances: 2-Mild Sensitivity Headache: 0-None Present CIWA-Ar Total Score: 17 S COWS - Scale Resting Pulse: 0= [place] 80 or Below Sweatin= Chills/Flushing Restless Observation: 1= Difficult to Sit Still Pupil Size: 0= Normal to Room Light Bone or Joint Aches: 2= Severe Diffuse Aches Runny Nose/ Eye Tearin= Runny Nose/Eyes GI Upset > 30mins: 1= Stomach Cramp Tremor Observation of Outstretched Hands: 2= Slight Tremor Visible Yawning Observation: 2= >3x During Session Anxiety or Irritability: 2=Irritable/Anxious Goose Flesh Skin: 0=Smooth Skin COWS Score: 13 [facility] Progress Note (SOAP) Subjective: Body Aches, Interrupted Sleep, Tremors. Objective: PT. A & O X 3. NO ACUTE DISTRESS. 03/06/17 18:48 Vital Signs Temperature 97.2 F L 03/06/17 17:22 Pulse Rate 63 03/06/17 17:22 Respiratory Rate 18 03/06/17 17:22 Blood Pressure 105/69 03/06/17 17:22 O2 Sat by Pulse Oximetry (%) Laboratory Tests 03/04/17 03/05/17 03/05/17 20:39 07:00 07:00 WBC 4.3 RBC 5.00 Hgb 15.0 D Hct 44.9 MCV 89.9 MCHC 33.3 RDW 15.8 Plt Count 170 MPV 8.1 Sodium 138 Potassium 4.3 Chloride 104 Carbon Dioxide 26 Anion Gap 8 BUN 13 D Creatinine 0.9 Creat Clearance w eGFR > 60 Random Glucose 93 Calcium 8.9 Total Bilirubin 0.7 D AST 16 D ALT 20 D Alkaline Phosphatase 89 Total Protein 6.5 Albumin 3.6 Urine Color Ltyellow Urine Appearance Clear Urine pH 5.0 Ur Specific [place] 1.015 Urine Protein Negative Urine Glucose (UA) Negative Urine Ketones Negative Urine Blood Negative Urine Nitrite Negative Urine Bilirubin Negative Urine Urobilinogen Negative Ur Leukocyte Esterase Negative RPR Titer 03/05/17 07:00 WBC RBC Hgb Hct MCV MCHC RDW Plt Count MPV Sodium Potassium Chloride Carbon Dioxide Anion Gap BUN Creatinine Creat Clearance w eGFR Random Glucose Calcium Total Bilirubin AST ALT Alkaline Phosphatase Total Protein Albumin Urine Color Urine Appearance Urine pH Ur Specific [place] Urine Protein Urine Glucose (UA) Urine Ketones Urine Blood Urine Nitrite Urine Bilirubin Urine Urobilinogen Ur Leukocyte Esterase RPR Titer Nonreactive LABS NOTED. Assessment: 03/06/17 18:48 WITHDRAWAL SYMPTOMS. Plan: CONTINUE DETOX.
[2017-03-06] MEDS: THIAMINE HCL 100 MG TABLET (FP) PO SCH (22:31)
[2017-03-06] MEDS: QUEtiapine FUMARATE 100 MG TABLET (FP) PO SCH (22:31)
[2017-03-07] MEDS: diazePAM 5 MG TABLET PO PRN ×3 (02:28→13:30)
[2017-03-07] MEDS: METHADONE HCL 5 MG TABLET (FOR DETOX USE ONLY) PO SCH (10:18)
[2017-03-07] MEDS: PRENATAL VITAMINS W/ FOLIC ACID TABLET (FP) PO SCH (10:18)
[2017-03-07] MEDS: cloNIDine HCL 0.1 MG TABLET PO SCH ×2 (10:18→22:29)
[2017-03-07] MEDS: diazePAM 5 MG TABLET PO SCH ×2 (10:18→22:28)
[2017-03-07] MEDS: CYCLOBENZAPRINE HCL 10 MG TABLET (FP) PO PRN (10:18)
[2017-03-07] MEDS: NICOTINE 21 MG/24 HOURS TOPICAL PATCH TD SCH (10:18)
[2017-03-07] MEDS: NICOTINE POLACRILEX 2 MG GUM BC PRN (10:20)
--- NOTE | 2017-03-07 16:03 | PN ---
[facility] Progress Note (SOAP) Subjective: Tremor, sweating, interrupted sleep, chills, tactile disturbances Objective: 03/07/17 16:02 Last Vital Signs Temp Pulse Resp BP Pulse Ox 96.7 F L 69 18 112/67 03/07/17 13:29 03/07/17 13:29 03/07/17 13:29 03/07/17 13:29 Laboratory Tests 03/04/17 03/05/17 03/05/17 20:39 07:00 07:00 WBC 4.3 RBC 5.00 Hgb 15.0 D Hct 44.9 MCV 89.9 MCHC 33.3 RDW 15.8 Plt Count 170 MPV 8.1 Sodium 138 Potassium 4.3 Chloride 104 Carbon Dioxide 26 Anion Gap 8 BUN 13 D Creatinine 0.9 Creat Clearance w eGFR > 60 Random Glucose 93 Calcium 8.9 Total Bilirubin 0.7 D AST 16 D ALT 20 D Alkaline Phosphatase 89 Total Protein 6.5 Albumin 3.6 Urine Color Ltyellow Urine Appearance Clear Urine pH 5.0 Ur Specific [place] 1.015 Urine Protein Negative Urine Glucose (UA) Negative Urine Ketones Negative Urine Blood Negative Urine Nitrite Negative Urine Bilirubin Negative Urine Urobilinogen Negative Ur Leukocyte Esterase Negative RPR Titer 03/05/17 07:00 WBC RBC Hgb Hct MCV MCHC RDW Plt Count MPV Sodium Potassium Chloride Carbon Dioxide Anion Gap BUN Creatinine Creat Clearance w eGFR Random Glucose Calcium Total Bilirubin AST ALT Alkaline Phosphatase Total Protein Albumin Urine Color Urine Appearance Urine pH Ur Specific [place] Urine Protein Urine Glucose (UA) Urine Ketones Urine Blood Urine Nitrite Urine Bilirubin Urine Urobilinogen Ur Leukocyte Esterase RPR Titer Nonreactive Labs noted Assessment: 03/07/17 16:02 Withdrawal symptoms Plan: Continue detox
[2017-03-07] MEDS: QUEtiapine FUMARATE 100 MG TABLET (FP) PO SCH (22:28)
[2017-03-07] MEDS: THIAMINE HCL 100 MG TABLET (FP) PO SCH (22:28)
[2017-03-07] MEDS: diphenhydrAMINE HCL 50 MG CAPSULE PO PRN (22:29)
[2017-03-08] MEDS ORDERED: METHADONE HCL 10 MG TABLET (FOR DETOX USE ONLY) PO SCH (10:00)
[2017-03-08] MEDS ORDERED: diazePAM 5 MG TABLET PO SCH (10:00)
[2017-03-08] MEDS: cloNIDine HCL 0.1 MG TABLET PO SCH ×2 (10:37→22:44)
[2017-03-08] MEDS: PRENATAL VITAMINS W/ FOLIC ACID TABLET (FP) PO SCH (10:37)
[2017-03-08] MEDS: NICOTINE 21 MG/24 HOURS TOPICAL PATCH TD SCH (10:37)
[2017-03-08] MEDS: NICOTINE POLACRILEX 2 MG GUM BC PRN ×3 (10:38→22:46)
--- NOTE | 2017-03-08 12:53 | PN ---
[facility] Progress Note (SOAP) Subjective: Sweating,interrupted sleep,restless Objective: 03/08/17 12:52 Vital Signs - 8 hr 03/08/17 09:46 Temperature 98.0 F Pulse Rate 72 Respiratory 18 Rate Blood Pressure 112/69 Laboratory Tests 03/04/17 03/05/17 03/05/17 20:39 07:00 07:00 WBC 4.3 RBC 5.00 Hgb 15.0 D Hct 44.9 MCV 89.9 MCHC 33.3 RDW 15.8 Plt Count 170 MPV 8.1 Sodium 138 Potassium 4.3 Chloride 104 Carbon Dioxide 26 Anion Gap 8 BUN 13 D Creatinine 0.9 Creat Clearance w eGFR > 60 Random Glucose 93 Calcium 8.9 Total Bilirubin 0.7 D AST 16 D ALT 20 D Alkaline Phosphatase 89 Total Protein 6.5 Albumin 3.6 Urine Color Ltyellow Urine Appearance Clear Urine pH 5.0 Ur Specific [place] 1.015 Urine Protein Negative Urine Glucose (UA) Negative Urine Ketones Negative Urine Blood Negative Urine Nitrite Negative Urine Bilirubin Negative Urine Urobilinogen Negative Ur Leukocyte Esterase Negative RPR Titer 03/05/17 07:00 WBC RBC Hgb Hct MCV MCHC RDW Plt Count MPV Sodium Potassium Chloride Carbon Dioxide Anion Gap BUN Creatinine Creat Clearance w eGFR Random Glucose Calcium Total Bilirubin AST ALT Alkaline Phosphatase Total Protein Albumin Urine Color Urine Appearance Urine pH Ur Specific [place] Urine Protein Urine Glucose (UA) Urine Ketones Urine Blood Urine Nitrite Urine Bilirubin Urine Urobilinogen Ur Leukocyte Esterase RPR Titer Nonreactive labs noted Assessment: 03/08/17 12:52 Withdrawal sx. Plan: Continue detox
[2017-03-08] MEDS: THIAMINE HCL 100 MG TABLET (FP) PO SCH (22:44)
[2017-03-08] MEDS: QUEtiapine FUMARATE 100 MG TABLET (FP) PO SCH (22:44)
[2017-03-08] MEDS: diphenhydrAMINE HCL 50 MG CAPSULE PO PRN (22:44)
[2017-03-08] MEDS: CYCLOBENZAPRINE HCL 10 MG TABLET (FP) PO PRN (22:46)
[2017-03-09] MEDS ORDERED: METHADONE HCL 5 MG TABLET (FOR DETOX USE ONLY) PO SCH (06:00)
[2017-03-09 06:38] VITALS: BP 118/73; PULSE 83; TEMP 97.4
--- NOTE | 2017-03-09 09:01 | DS ---
[facility] Detox Discharge Summary Admission Date: 03/04/17 Discharge Date: 03/09/17 - History Present History: Alcohol Dependence, Opioid Dependence, Sedative Dependence Additional Comments: DETOX COMPLETED. ALERT O X 3. NAD. Pertinent Past History: HEP C AB TEST SCREEN POSITIVE HX INSOMNIA - Physical Exam Results Vital Signs: Vital Signs Temperature 97.4 F L 03/09/17 06:37 Pulse Rate 83 03/09/17 06:37 Respiratory Rate 18 03/09/17 06:37 Blood Pressure 118/73 03/09/17 06:37 O2 Sat by Pulse Oximetry (%) Pertinent Admission Physical Exam Findings: WITHDRAWAL SX Laboratory Last Values WBC 4.3 K/mm3 (4.0-10.0) 03/05/17 07:00 RBC 5.00 M/mm3 (4.00-5.60) 03/05/17 07:00 Hgb 15.0 GM/dL (11.7-16.9) D 03/05/17 07:00 Hct 44.9 % (35.4-49) 03/05/17 07:00 MCV 89.9 fl (80-96) 03/05/17 07:00 MCHC 33.3 g/dl (32.0-35.9) 03/05/17 07:00 RDW 15.8 % (11.9-15.9) 03/05/17 07:00 Plt Count 170 K/MM3 (134-434) 03/05/17 07:00 MPV 8.1 fl (7.5-11.1) 03/05/17 07:00 Sodium 138 mmol/L (136-145) 03/05/17 07:00 Potassium 4.3 mmol/L (3.5-5.1) 03/05/17 07:00 Chloride 104 mmol/L (98-107) 03/05/17 07:00 Carbon Dioxide 26 mmol/L (21-32) 03/05/17 07:00 Anion Gap 8 (8-16) 03/05/17 07:00 BUN 13 mg/dL (7-18) D 03/05/17 07:00 Creatinine 0.9 mg/dL (0.7-1.3) 03/05/17 07:00 Creat Clearance w eGFR > 60 (>60) 03/05/17 07:00 Random Glucose 93 mg/dL (74-106) 03/05/17 07:00 Calcium 8.9 mg/dL (8.5-10.1) 03/05/17 07:00 Total Bilirubin 0.7 mg/dL (0.2-1.0) D 03/05/17 07:00 AST 16 U/L (15-37) D 03/05/17 07:00 ALT 20 U/L (12-78) D 03/05/17 07:00 Alkaline Phosphatase 89 U/L (45-117) 03/05/17 07:00 Total Protein 6.5 g/dl (6.4-8.2) 03/05/17 07:00 Albumin 3.6 g/dl (3.4-5.0) 03/05/17 07:00 Urine Color Ltyellow 03/04/17 20:39 Urine Appearance Clear 03/04/17 20:39 Urine pH 5.0 (5.0-8.0) 03/04/17 20:39 Ur Specific [place] 1.015 (1.005-1.025) 03/04/17 20:39 Urine Protein Negative (NEGATIVE) 03/04/17 20:39 Urine Glucose (UA) Negative (NEGATIVE) 03/04/17 20:39 Urine Ketones Negative (NEGATIVE) 03/04/17 20:39 Urine Blood Negative (NEGATIVE) 03/04/17 20:39 Urine Nitrite Negative (NEGATIVE) 03/04/17 20:39 Urine Bilirubin Negative (NEGATIVE) 03/04/17 20:39 Urine Urobilinogen Negative E.U./dl (0.2-1.0) 03/04/17 20:39 Ur Leukocyte Esterase Negative (NEGATIVE) 03/04/17 20:39 RPR Titer Nonreactive (NONREACTIVE) 03/05/17 07:00 - Treatment Hospital Course: Detox Protocol Followed, Detoxed Safely, Responded well, Discharged Condition Good Patient has Accepted a Rehab Referral to: DECLINED REHAB - Medication Discharge Medications: Ambulatory Orders Quetiapine Fumarate [Seroquel] 100 mg PO HS #30 tablet 03/05/17 - Diagnosis (1) Alcohol dependence with uncomplicated withdrawal Status: Acute (2) Nicotine dependence Status: Acute Qualifiers: Nicotine product type: cigarettes Substance use status: in withdrawal Qualified Code(s): F17.213 - Nicotine dependence, cigarettes, with withdrawal (3) Opioid dependence with withdrawal Status: Acute (4) Sedative, hypnotic or anxiolytic dependence with withdrawal, uncomplicated Status: Acute (5) Weight loss Status: Acute (6) Encounter for monitoring Suboxone maintenance therapy Status: Inactive (7) Insomnia Status: Acute Qualifiers: Insomnia type: unspecified Qualified Code(s): G47.00 - Insomnia, unspecified (8) Substance induced mood disorder Status: Acute (9) Hepatitis C antibody test positive Status: Chronic - AMA Did Patient Leave Against Medical Advice: No
== END 2017-03-09 09:06 | disposition home or self-care (01) | DRG 773 ==
LOC: YASAS 12:30 → Y3N 15:12
PROVIDERS: ADMIT Internal Medicine; ATTEND Internal Medicine
PROC: HZ2ZZZZ Detoxification Services for Substance Abuse Treatment (ICD-10-PCS; principal; 2017-03-04)
DX: F11.23 Opioid dependence with withdrawal (principal); F13.230 Sedative, hypnotic or anxiolytic dependence with withdrawal, uncomplicated; F17.213 Nicotine dependence, cigarettes, with withdrawal; F19.24 Other psychoactive substance dependence with psychoactive substance-induced mood disorder; F34.1 Dysthymic disorder; B18.2 Chronic viral hepatitis C; G47.00 Insomnia, unspecified; Z87.898 Personal history of other specified conditions
CPT/HCPCS: 36415; 80053; 81003; 85027; 86593; 93005; 93010

== ENCOUNTER 2017-08-19 09:30 | Inpatient (IN) | payer OTHER ==
[2017-08-19 12:58] VITALS: BMI 25.2
--- NOTE | 2017-08-19 15:32 | HP ---
Admission [facility] Chief Complaint: "I am afraid that I will keep going with using if I do not have Rehab." Patient is here for Rehab for Heroin. Allergies/Adverse Reactions: Allergies Allergy/AdvReac Type Severity Reaction Status Date / Time No Known Allergies Allergy Verified 08/19/17 13:56 History of Present Illness: Patient is a 36 YO male here for rehab for Heroin. Patient has had several previous Detox / Rehab admissions at [facility] in the past, most recent: Detox: 2016. Patient takes Suboxone, 8 mg / 2 mg TID, prescribed by Cole Celeste MD (Rachana, N. Y., ). Exam Limitations: No Limitations - Ebola screening Have you traveled outside of the country in the last 21 days: No (N) Have you had contact with anyone from an Ebola affected area: No Have you been sick,other than usual withdrawal symptoms: No Do you have a fever: No - Review of Systems Constitutional: Malaise, Changes in sleep EENT: reports: No Symptoms Reported Respiratory: reports: No Symptoms reported Cardiac: reports: No Symptoms Reported GI: reports: No Symptoms Reported : reports: No Symptoms Reported Musculoskeletal: reports: No Symptoms Reported Integumentary: reports: No Symptoms Reported Neuro: reports: No Symptoms reported Endocrine: reports: No Symptoms Reported Hematology: reports: No Symptoms Reported Psychiatric: reports: Judgement Intact, Mood/Affect Appropiate, Orientated x3 Other Systems: Reviewed and Negative Patient History - Patient Medical History Hx Anemia: No Hx Asthma: No Hx Chronic Obstructive Pulmonary Disease (COPD): No Hx Cancer: No Hx Cardiac Disorders: No Hx Congestive Heart Failure: No Hx Hypertension: No Hx Hypercholesterolemia: No Hx Pacemaker: No HX Cerebrovascular Accident: No Hx Seizures: No Hx Dementia: No Hx Diabetes: No Hx Gastrointestinal Disorders: No Hx Liver Disease: No Hx Genitourinary Disorders: No Hx Sexually Transmitted Disorders: No Hx Renal Disease (ESRD): No Hx Thyroid Disease: No Hx Human Immunodeficiency Virus (HIV): No (Last Tested: 05/2017: NEGATIVE.) Hx Hepatitis C: Yes (Positive Ab (Dx'd 09/2016), Undetectable Viral Load since then.) Hx Depression: No Hx Suicide Attempt: No (PATIENT DENIES CURRENT SI / HI.) Hx Bipolar Disorder: No Hx Schizophrenia: No Other Medical History: DENIES. - Patient Surgical History Past Surgical History: No Hx Neurologic Surgery: No Hx Cataract Extraction: No Hx Cardiac Surgery: No Hx Lung Surgery: No Hx Breast Surgery: No Hx Breast Biopsy: No Hx Abdominal Surgery: No Hx Appendectomy: No Hx Cholecystectomy: No Hx Genitourinary Surgery: No Hx Section: No Hx Orthopedic Surgery: No Anesthesia Reaction: No - PPD History Previous Implant?: Yes Documented Results: Negative w/proof Implanted On Prior [facility] Admission?: Yes Date: 11/20/16 Results: 0 mm PPD to be Administered?: No - Reproductive History Patient is a Female of Child Bearing Age (11 -55 yrs old): No (PATIENT IS MALE.) - Smoking Cessation Smoking history: Current every day smoker Have you smoked in the past 12 months: Yes Aproximately how many cigarettes per day: 40 Cigars Per Day: 0 Hx Chewing Tobacco Use: No Initiated information on smoking cessation: Yes 'Breaking Loose' booklet given: 08/19/17 (GIVEN ON UNIT.) - Substance & Tx. History Hx Alcohol Use: No Hx Substance Use: Yes Substance Use Type: Heroin Hx Substance Use Treatment: Yes (Previous Detox/Rehab admissions at [facility]: Last Detox: 02/2017.) - Substances Abused Heroin Route: Injection Frequency: 1-3 times last 30 days Amount used: 3 bags Age of first use: 14 Date of Last Use: 08/18/17 Family Disease History - Family Disease History Family Disease History: [place]: Mother (throat ), Other: Father (kidney; ) Admission Physical Exam S - Vital Signs Vital Signs: Vital Signs - 24 hr 08/19/17 12:56 Temperature 97 F L Pulse Rate 97 H Respiratory 20 Rate Blood Pressure 136/79 - Physical General Appearance: Yes: No Apparent Distress, Nourished, Appropriately Dressed , Anxious HEENTM: Yes: Hearing grossly Normal, Normocephalic, Normal Voice, [place], Pharynx Normal Respiratory: Yes: Chest Non-Tender, Lungs Clear, No Respiratory Distress, No Accessory Muscle Use Neck: Yes: No masses,lesions,Nodules, Supple, Trachea in good position Breast: Yes: Breast Exam Deferred Cardiology: Yes: Regular Rhythm, Regular Rate, S1, S2 Abdominal: Yes: Normal Bowel Sounds, Non Tender, Flat, Soft Genitourinary: Yes: Within Normal Limits Back: Yes: Normal Inspection Musculoskeletal: Yes: full range of Motion, Gait Steady Extremities: Yes: Normal Capillary Refill, Normal Range of Motion, Non-Tender Neurological: Yes: Fully Oriented, Alert, Normal Mood/Affect, Normal Response Integumentary: Yes: Normal Color, Dry, Warm Lymphatic: Yes: Within Normal Limits - Diagnostic (1) Uncomplicated opioid dependence Current Visit: Yes Status: Chronic (2) Encounter for monitoring Suboxone maintenance therapy Current Visit: Yes Status: Chronic (3) Insomnia Current Visit: Yes Status: Chronic Qualifiers: Insomnia type: unspecified Qualified Code(s): G47.00 - Insomnia, unspecified (4) Nicotine dependence Current Visit: Yes Status: Chronic Qualifiers: Nicotine product type: cigarettes Substance use status: in withdrawal Qualified Code(s): F17.213 - Nicotine dependence, cigarettes, with withdrawal (5) Hepatitis C antibody test positive Current Visit: Yes Status: Chronic Comment: scheduled for treatment with primary care physician Cleared for Admission [facility] - Detox or Rehab Claeared for Rehab Admission: Yes [facility] Breath Alcohol Content Breath Alcohol Content: 0 Urine Drug Screen - Results Drug Screen Negative: No Urine Drug Screen Results: ROMAIN-Cocaine, OPI-Opiates, BZO-Benzodiazepines Inpatient Rehab Admission - Initial Determination Are CD services needed?: Yes Free of communicable disease: Yes Not in need of hospitalization: Yes - Rehab Admission Criteria Previous failed treatment: Yes Comorbidities: Yes Patient is meeting Inpatient Rehab admission criteria:: Yes
[2017-08-19] MEDS ORDERED: ACETAMINOPHEN 325 MG TABLET (FP) PO PRN (15:57)
[2017-08-19] MEDS ORDERED: MAGNESIUM HYDROX 2400MG/30ML ORAL SUSPENSION 30 ML CUP PO PRN (15:57)
[2017-08-19] MEDS ORDERED: MENTHOL/PHENOL 1 EACH UD MM PRN (15:57)
[2017-08-19] MEDS ORDERED: guaiFENesin/D-METHORPHAN HB 10 ML UNIT-DOSE CUPS PO PRN (15:57)
[2017-08-19] MEDS ORDERED: IBUPROFEN 400 MG TABLET (FP) PO PRN (15:57)
[2017-08-19] MEDS ORDERED: MAG HYDROX/AL HYDROX/SIMETH 30 ML UNIT-DOSE CUP PO PRN (15:57)
[2017-08-19] MEDS ORDERED: hydrOXYzine PAMOATE 25 MG CAPSULE (FP) PO PRN (15:57)
[2017-08-19] MEDS ORDERED: LOPERAMIDE HCL 2 MG CAPSULE PO PRN (15:57)
[2017-08-19] MEDS ORDERED: MAGNESIUM CITRATE 300 ML BOTTLE PO PRN (15:57)
[2017-08-19] MEDS ORDERED: P-EPHED 60MG/TRIPROLIDI 2.5MG TABLET PO PRN (15:57)
[2017-08-19] MEDS: NICOTINE 21 MG/24 HOURS TOPICAL PATCH TD SCH (18:03)
[2017-08-19] MEDS: NICOTINE POLACRILEX 4 MG GUM BC PRN (18:04)
[2017-08-19] MEDS: QUEtiapine FUMARATE 100 MG TABLET (FP) PO SCH (21:54)
[2017-08-19] MEDS: BUPRENORPHINE/NALOXONE 8 MG/2 MG FILM PACKET SL SCH (21:55)
[2017-08-19] MEDS: THIAMINE HCL 100 MG TABLET (FP) PO SCH (21:55)
[2017-08-20 03:48] LABS: URINE APPEARANCE SLCLOUDY; URINE BILIRUBIN NEGATIVE (NEGATIVE); URINE BLOOD NEGATIVE (NEGATIVE); URINE COLOR YELLOW; URINE GLUCOSE (UA) NEGATIVE (NEGATIVE); URINE KETONE NEGATIVE (NEGATIVE); URINE NITRITE NEGATIVE (NEGATIVE); URINE PROTEIN NEGATIVE (NEGATIVE); URINE UROBILINOGEN NEGATIVE mg/dL (0.2-1.0)
[2017-08-20] MEDS: BUPRENORPHINE/NALOXONE 8 MG/2 MG FILM PACKET SL SCH ×3 (06:43→21:15)
[2017-08-20 09:56] LABS: MCH 30.5 pg (25.7-33.7); MCHC 33.2 g/dl (32.0-35.9); MEAN CELL VOLUME 91.9 fl (80-96); PLATELET COUNT 183 K/MM3 (134-434); RDW 14.6 % (11.9-15.9)
[2017-08-20 10:01] LABS: ANION GAP 7 (8-16); CALCIUM 8.6 mg/dL (8.5-10.1); CO2 24 mmol/L (21-32)
--- NOTE | 2017-08-20 10:10 | EKG ---
Test Reason : Blood Pressure : / mmHG Vent. Rate : 068 BPM Atrial Rate : 068 BPM P-R Int : 180 ms QRS Dur : 094 ms QT Int : 412 ms P-R-T Axes : 072 051 073 degrees QTc Int : 438 ms NORMAL SINUS RHYTHM WITH SINUS ARRHYTHMIA NORMAL ECG WHEN COMPARED WITH ECG OF 04-MAR-2017 15:55, NO SIGNIFICANT CHANGE WAS FOUND Confirmed by KEVIN ROA MD ([id number]) on 08/20/2017 10:10:41 AM Referred By: DOMINGO CLOUD Confirmed By:KEVIN ROA MD
[2017-08-20 10:14] LABS: ALK PHOS 110 U/L (45-117); BILIRUBIN,TOTAL 0.6 mg/dL (0.2-1.0); CREATININE 0.8 mg/dL (0.7-1.3); GLUCOSE,RANDOM 106 mg/dL (74-106); SGOT/AST 25 U/L (15-37); SGPT/ALT 44 U/L (12-78); TOT PROT 7.1 g/dl (6.4-8.2)
[2017-08-20] MEDS: NICOTINE 21 MG/24 HOURS TOPICAL PATCH TD SCH (10:24)
[2017-08-20] MEDS: PRENATAL VITAMINS W/ FOLIC ACID TABLET (FP) PO SCH (10:24)
[2017-08-20 11:18] LABS: URINE LEUK ESTERASE Negative (NEGATIVE)
[2017-08-20] MEDS: NICOTINE POLACRILEX 4 MG GUM BC PRN ×2 (11:25→16:07)
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
[2017-08-20] MEDS: QUEtiapine FUMARATE 100 MG TABLET (FP) PO SCH (21:15)
[2017-08-20] MEDS: THIAMINE HCL 100 MG TABLET (FP) PO SCH (21:15)
[2017-08-21] MEDS: BUPRENORPHINE/NALOXONE 8 MG/2 MG FILM PACKET SL SCH ×2 (06:40→14:01)
[2017-08-21 06:57] VITALS: BP 132/80; PULSE 54; TEMP 98.2
[2017-08-21] MEDS: NICOTINE POLACRILEX 4 MG GUM BC PRN ×2 (08:44→11:53)
[2017-08-21] MEDS: NICOTINE 21 MG/24 HOURS TOPICAL PATCH TD SCH (09:14)
[2017-08-21] MEDS: PRENATAL VITAMINS W/ FOLIC ACID TABLET (FP) PO SCH (09:14)
--- NOTE | 2017-08-23 11:11 | PN ---
S Progress Note Note: patient signed out AMA on 08/21/17, please see medical staff notes.
== END 2017-08-21 15:20 | disposition left against medical advice (07) | DRG 770 ==
LOC: YASAS 09:30 → Y5N 15:53
PROVIDERS: ADMIT Psychiatry & Neurology Psychiatry; ATTEND Psychiatry & Neurology Psychiatry
PROC: HZ42ZZZ Group Counseling for Substance Abuse Treatment, Cognitive-Behavioral (ICD-10-PCS; principal; 2017-08-19)
DX: F11.20 Opioid dependence, uncomplicated (principal); F17.210 Nicotine dependence, cigarettes, uncomplicated; F19.24 Other psychoactive substance dependence with psychoactive substance-induced mood disorder; F39 Unspecified mood [affective] disorder; G47.00 Insomnia, unspecified; B18.2 Chronic viral hepatitis C; Z51.81 Encounter for therapeutic drug level monitoring
CPT/HCPCS: 36415; 80053; 81003; 85027; 86593; 93005; 93010

== ENCOUNTER 2017-11-21 11:02 | Inpatient (IN) | payer OTHER ==
[2017-11-21 12:01] VITALS: BMI 25.0
--- NOTE | 2017-11-21 15:29 | HP ---
COWS - Scale Resting Pulse: 1= [place] 81-100 Sweatin=Flushed/Facial Moisture Restless Observation: 3= Extraneous Movement Pupil Size: 2= Moderately Dilated Bone or Joint Aches: 2= Severe Diffuse Aches Runny Nose/ Eye Tearin= Runny Nose/Eyes GI Upset > 30mins: 3= Vomiting/Diarrhea Tremor Observation: 2= Slight Tremor Visible Yawning Observation: 2= >3x During Session Anxiety or Irritability: 2=Irritable/Anxious Goose Flesh Skin: 0=Smooth Skin COWS Score: 21 CIWA Score - CIWA Score Nausea/Vomitin Muscle Tremors: 3 Anxiety: 3 Agitation: 3 Paroxysmal Sweats: 2 Orientation: 0-Oriented Tacttile Disturbances: 2-Mild Itch/Numbness/Burn Auditory Disturbances: 2-Mild Harshness/Frighten Visual Disturbances: 1-Very Mild Sensitivity Headache: 2-Mild CIWA-Ar Total Score: 21 Admission ROS S - HPI Chief Complaint: THIS 37 YEARS OLD MALE WITH HEROIN,ALCOHOL,COCAINE XANAX DEPENDENCE SEEKING DETOX,WITHDRAWAL SYMPTOM,LAST DETOX 08/19/17 TO 08/21/17 HEPATITIS C FOLLOW BY PMD ANXIETY,DEPRESSION,INSOMNIA WEIGHT LOSS LONGEST PERIOD OF SOBRIETY 2 YEARS NICOTINE DEPENDENCE Allergies/Adverse Reactions: Allergies Allergy/AdvReac Type Severity Reaction Status Date / Time No Known Allergies Allergy Verified 11/21/17 15:27 History of Present Illness: TIS 37 YEARS OLD MALE WITH HEROIN,ALCOHOL,COCAINE AND XANAX DEPENDENCE FOR DETOX MENTIONED ABOVE - Ebola screening Have you traveled outside of the country in the last 21 days: No (N) Have you had contact with anyone from an Ebola affected area: No Have you been sick,other than usual withdrawal symptoms: No Do you have a fever: No - Review of Systems Constitutional: Chills, Diaphoresis, Loss of Appetite, Malaise, Night Sweats, Changes in sleep, Weakness EENT: reports: Tearing, Nose Congestion Respiratory: reports: No Symptoms reported Cardiac: reports: Palpitations GI: reports: Diarrhea, Nausea, Vomiting, Abdominal cramping : reports: No Symptoms Reported Musculoskeletal: reports: Back Pain, Muscle Pain Integumentary: reports: Dryness Neuro: reports: Headache, Tremors Endocrine: reports: No Symptoms Reported Hematology: reports: No Symptoms Reported Psychiatric: reports: Anxious, Depressed, other Patient History - Patient Medical History Hx Anemia: No Hx Asthma: No Hx Chronic Obstructive Pulmonary Disease (COPD): No Hx Cancer: No Hx Cardiac Disorders: No Hx Congestive Heart Failure: No Hx Hypertension: No Hx Hypercholesterolemia: No Hx Pacemaker: No HX Cerebrovascular Accident: No Hx Seizures: No Hx Dementia: No Hx Diabetes: No Hx Gastrointestinal Disorders: No Hx Liver Disease: No Hx Genitourinary Disorders: No Hx Sexually Transmitted Disorders: No Hx Renal Disease (ESRD): No Hx Thyroid Disease: No Hx Human Immunodeficiency Virus (HIV): No (Last Tested: 05/2017: NEGATIVE.) Hx Hepatitis C: Yes (Positive Ab (Dx'd 09/2016), Undetectable Viral Load since then.) Hx Depression: No Hx Suicide Attempt: No (PATIENT DENIES CURRENT SI / HI.) Hx Bipolar Disorder: No Hx Schizophrenia: No - Patient Surgical History Past Surgical History: No Hx Neurologic Surgery: No Hx Cataract Extraction: No Hx Cardiac Surgery: No Hx Lung Surgery: No Hx Breast Surgery: No Hx Breast Biopsy: No Hx Abdominal Surgery: No Hx Appendectomy: No Hx Cholecystectomy: No Hx Genitourinary Surgery: No Hx Section: No Hx Orthopedic Surgery: No Anesthesia Reaction: No - PPD History Date: 11/20/16 Results: 0 mm - Smoking Cessation Smoking history: Current every day smoker Have you smoked in the past 12 months: Yes Aproximately how many cigarettes per day: 40 Cigars Per Day: 0 Hx Chewing Tobacco Use: No Initiated information on smoking cessation: Yes 'Breaking Loose' booklet given: 11/21/17 - Substance & Tx. History Hx Alcohol Use: Yes Hx Substance Use: Yes Substance Use Type: Alcohol, Cocaine, Heroin, Opiates Hx Substance Use Treatment: Yes ([facility] 08/19/17 TO 09/21/16) - Substances Abused Heroin Route: Inhalation Frequency: Daily Amount used: 15BAGS Age of first use: 14 Date of Last Use: 11/21/17 Cocaine Route: Injection Frequency: 1-3 times last 30 days Amount used: $20 Age of first use: 14 Date of Last Use: 11/17/17 ETOH Route: Oral Frequency: Daily Amount used: 6 24OZ FOUR LOCO Age of first use: 24 Date of Last Use: 11/20/17 XANAX Route: Oral Frequency: Daily Amount used: 8MG Age of first use: 31 Date of Last Use: 11/21/17 Family Disease History - Family Disease History Family Disease History: [place]: Mother (throat ), Other: Father (kidney; ) Admission Physical Exam [facility] - Vital Signs Vital Signs: Vital Signs - 24 hr 11/21/17 11:58 Temperature 97.9 F Pulse Rate 84 Respiratory 18 Rate Blood Pressure 122/75 - Physical General Appearance: Yes: Moderate Distress, Intoxicated, Tremorous, Irritable, Sweating, Anxious HEENTM: Yes: Normal ENT Inspection, [place], Pharynx Normal Respiratory: Yes: Lungs Clear, Normal Breath Sounds, No Respiratory Distress Neck: Yes: Within Normal Limits, Supple, Trachea in good position Breast: Yes: Within Normal Limits Cardiology: Yes: Regular Rhythm, Regular Rate, S1, S2 Abdominal: Yes: Normal Bowel Sounds, Non Tender, Flat, Soft Genitourinary: Yes: Within Normal Limits Musculoskeletal: Yes: Within Normal Limits Extremities: Yes: Within Normal Limits, Normal Range of Motion, Tremors Neurological: Yes: coke drawer hand II-XII NML intact, Fully Oriented, Alert, Motor Strength 5/5 Integumentary: Yes: Dry Lymphatic: Yes: Within Normal Limits - Diagnostic (1) Opioid dependence with withdrawal Current Visit: No Status: Acute (2) Alcohol dependence with uncomplicated withdrawal Current Visit: No Status: Acute (3) Sedative, hypnotic or anxiolytic dependence with withdrawal, uncomplicated Current Visit: No Status: Acute (4) Weight loss Current Visit: No Status: Acute Comment: ensure (5) Insomnia Current Visit: No Status: Chronic Qualifiers: Insomnia type: unspecified Qualified Code(s): G47.00 - Insomnia, unspecified (6) Nicotine dependence Current Visit: No Status: Chronic Qualifiers: Nicotine product type: cigarettes Substance use status: in withdrawal Qualified Code(s): F17.213 - Nicotine dependence, cigarettes, with withdrawal (7) Insomnia Current Visit: Yes Status: Acute Cleared for Admission [facility] - Detox or Rehab [facility] Level of Care: Medically Managed Detox Regimen/Protocol: Methadone/Valium [facility] Breath Alcohol Content Breath Alcohol Content: 0 Urine Drug Screen - Results Drug Screen Negative: No Urine Drug Screen Results: ROMAIN-Cocaine, OPI-Opiates, BZO-Benzodiazepines
[2017-11-21] MEDS ORDERED: MAG HYDROX/AL HYDROX/SIMETH 30 ML UNIT-DOSE CUP PO PRN (15:41)
[2017-11-21] MEDS ORDERED: ACETAMINOPHEN 325 MG TABLET (FP) PO PRN (15:41)
[2017-11-21] MEDS ORDERED: IBUPROFEN 400 MG TABLET (FP) PO PRN (15:41)
[2017-11-21] MEDS ORDERED: MENTHOL/PHENOL 1 EACH UD MM PRN (15:41)
[2017-11-21] MEDS ORDERED: hydrOXYzine PAMOATE 50 MG CAPSULE (FP) PO PRN (15:41)
[2017-11-21] MEDS ORDERED: guaiFENesin/D-METHORPHAN HB 10 ML UNIT-DOSE CUPS PO PRN (15:41)
[2017-11-21] MEDS ORDERED: MAGNESIUM HYDROX 2400MG/30ML ORAL SUSPENSION 30 ML CUP PO PRN (15:41)
[2017-11-21] MEDS ORDERED: MAGNESIUM CITRATE 300 ML BOTTLE PO PRN (15:41)
[2017-11-21] MEDS ORDERED: LOPERAMIDE HCL 2 MG CAPSULE PO PRN (15:41)
[2017-11-21] MEDS ORDERED: P-EPHED 60MG/TRIPROLIDI 2.5MG TABLET PO PRN (15:41)
[2017-11-21] MEDS ORDERED: diazePAM 5 MG TABLET PO ONE (17:55)
[2017-11-21] MEDS ORDERED: METHADONE HCL 10 MG TABLET (FOR DETOX USE ONLY) PO ONE ×2 (17:55→23:00)
[2017-11-21] MEDS: diazePAM 5 MG TABLET PO SCH (22:30)
[2017-11-21] MEDS: THIAMINE HCL 100 MG TABLET (FP) PO SCH (22:32)
[2017-11-21 22:54] LABS: URINE APPEARANCE CLEAR; URINE BILIRUBIN NEGATIVE (NEGATIVE); URINE BLOOD NEGATIVE (NEGATIVE); URINE COLOR YELLOW; URINE GLUCOSE (UA) NEGATIVE (NEGATIVE); URINE KETONE NEGATIVE (NEGATIVE); URINE LEUK ESTERASE NEGATIVE (NEGATIVE); URINE NITRITE NEGATIVE (NEGATIVE); URINE PROTEIN NEGATIVE (NEGATIVE); URINE UROBILINOGEN NEGATIVE mg/dL (0.2-1.0)
[2017-11-22] MEDS: diazePAM 5 MG TABLET PO SCH ×3 (05:54→22:22)
[2017-11-22] MEDS: diazePAM 5 MG TABLET PO PRN ×2 (09:47→17:15)
[2017-11-22] MEDS: PRENATAL VITAMINS W/ FOLIC ACID TABLET (FP) PO SCH (09:47)
[2017-11-22] MEDS ORDERED: METHADONE HCL 10 MG TABLET (FOR DETOX USE ONLY) PO SCH (10:00)
--- NOTE | 2017-11-22 10:49 | EKG ---
Test Reason : Blood Pressure : / mmHG Vent. Rate : 060 BPM Atrial Rate : 060 BPM P-R Int : 166 ms QRS Dur : 098 ms QT Int : 424 ms P-R-T Axes : 053 039 056 degrees QTc Int : 424 ms NORMAL SINUS RHYTHM NORMAL ECG WHEN COMPARED WITH ECG OF 19-AUG-2017 22:31, NO SIGNIFICANT CHANGE WAS FOUND Confirmed by KAUR HENRIQUEZ MD ([id number]) on 11/22/2017 10:49:27 AM Referred By: Confirmed By:KAUR HENRIQUEZ MD
--- NOTE | 2017-11-22 11:59 | PN ---
[facility] CIWA - CIWA Score Nausea/Vomitin-No Nausea/No Vomiting Muscle Tremors: 4-Moderate,w/Arms Extend Anxiety: 4-Mod. Anxious/Guarded Agitation: 3 Paroxysmal Sweats: 1-Minimal Palms Moist Orientation: 0-Oriented Tacttile Disturbances: 3-Moderate Itch/Numb/Burn Auditory Disturbances: 0-None Visual Disturbances: 0-None Headache: 0-None Present CIWA-Ar Total Score: 15 BHS COWS - Scale Resting Pulse: 0= [place] 80 or Below Sweatin= Chills/Flushing Restless Observation: 3= Extraneous Movement Pupil Size: 0= Normal to Room Light Bone or Joint Aches: 4=Acute Joint/Muscle Pain Runny Nose/ Eye Tearin= Nasal Congestion GI Upset > 30mins: 1= Stomach Cramp Tremor Observation of Outstretched Hands: 1= Tremor Opp, Not Seen Yawning Observation: 1= 1-2x During Session Anxiety or Irritability: 2=Irritable/Anxious Goose Flesh Skin: 0=Smooth Skin COWS Score: 14 [facility] Progress Note (SOAP) Subjective: ANXIETY,SWEATS,TREMORS,IRRITABILITY,BODY ACHES,INTERMITTENT SLEEP. Objective: 11/22/17 11:58 Vital Signs Temperature 97.5 F L 11/22/17 09:49 Pulse Rate 67 11/22/17 09:49 Respiratory Rate 18 11/22/17 09:49 Blood Pressure 146/100 11/22/17 09:49 O2 Sat by Pulse Oximetry (%) Laboratory Last Values Urine Color Yellow 11/21/17 22:40 Urine Appearance Clear 11/21/17 22:40 Urine pH 5.0 (5.0-8.0) 11/21/17 22:40 Ur Specific [place] 1.024 (1.001-1.035) 11/21/17 22:40 Urine Protein Negative (NEGATIVE) 11/21/17 22:40 Urine Glucose (UA) Negative (NEGATIVE) 11/21/17 22:40 Urine Ketones Negative (NEGATIVE) 11/21/17 22:40 Urine Blood Negative (NEGATIVE) 11/21/17 22:40 Urine Nitrite Negative (NEGATIVE) 11/21/17 22:40 Urine Bilirubin Negative (NEGATIVE) 11/21/17 22:40 Urine Urobilinogen Negative mg/dL (0.2-1.0) 11/21/17 22:40 Ur Leukocyte Esterase Negative (NEGATIVE) 11/21/17 22:40 OTHER LABS PENDING Assessment: 11/22/17 11:59 WITHDRAWAL SX Plan: CONTINUE DETOX INCREASE PO FLUIDS.
--- NOTE | 2017-11-22 13:50 | CONSULT ---
[facility] Psychiatric Consult - Data Date of interview: 11/22/17 Admission source: [facility] Identifying data: One of multiple admissions to [facility] [place] for this 37 y/o [place]-born male seeking detox treatment on for heroin,xanax,cocaine and alcohol dependence.Patient is single without children,domiciled,unemployed and reportedly deprived of any source of income. Substance Abuse History: Addictions confirmed by patient in this interview.Refer to current [facility] report for details : Smoking history: Current every day smoker. Have you smoked in the past 12 months: Yes. Aproximately how many cigarettes per day: 40. Cigars Per Day: 0. Hx Chewing Tobacco Use: No. Initiated information on smoking cessation: Yes. 'Breaking Loose' booklet given: 11/21/17. - Substance & Tx. History. Hx Alcohol Use: Yes. Hx Substance Use: Yes. Substance Use Type: Alcohol, Cocaine, Heroin, Opiates. Hx Substance Use Treatment: Yes ([facility] 08/19/17 TO 09/21/16). - Substances Abused. Heroin. Route: Inhalation. Frequency: Daily. Amount used: 15BAGS. Age of first use: 14. Date of Last Use: 11/21/17. Cocaine. Route: Injection. Frequency: 1-3 times last 30 days. Amount used: $20. Age of first use: 14. Date of Last Use: 11/17/17. ETOH. Route: Oral. Frequency: Daily. Amount used: 6 24OZ FOUR LOCO. Age of first use: 24. Date of Last Use: 11/20/17. * * XANAX. Route: Oral. Frequency: Daily. Amount used: 8MG. Age of first use: 31. Date of Last Use: 11/21/17 Medical History: Hepatitis C and self-reported weight loss. Psychiatric History: Patient denies history of psychiatric hospitalizations.Prescribed seroquel 200 mg/hs (during previous treatment at [facility]Mr Zamudio denies current setting for psychiatric OPD care.Neglects to take medications once discharged fron detox/rehab units.No reported history of suicide attempts. Physical/Sexual Abuse/Trauma History: Patient denies. Additional Comment: Urine Drug Screen Results: ROMAIN-Cocaine, OPI-Opiates, BZO- Benzodiazepines.Noted. Mental Status Exam - Mental Status Exam Alert and Oriented to: Time, Place, Person Cognitive Function: Grossly Intact Patient Appearance: Unkempt, Disheveled Mood: Nervous, Withdrawn Affect: Mood Congruent Patient Behavior: Fatigued, Cooperative (marginally cooperative) Speech Pattern: Clear, Appropriate Voice Loudness: Normal Thought Process: Goal Oriented Thought Disorder: Not Present Hallucinations: Denies Suicidal Ideation: Denies Homicidal Ideation: Denies Insight/Judgement: Poor Sleep: Poorly, Difficulty falling asleep Appetite: Good Muscle strength/Tone: Normal Gait/Station: Normal Psychiatric Findings - Problem List ([place] 1, 2,3) (1) Opioid dependence with withdrawal Status: Acute (2) Cocaine dependence Status: Acute (3) Alcohol dependence with uncomplicated withdrawal Status: Acute (4) Sedative, hypnotic or anxiolytic dependence with withdrawal, uncomplicated Status: Acute (5) Nicotine dependence Status: Acute Qualifiers: Nicotine product type: cigarettes Substance use status: in withdrawal Qualified Code(s): F17.213 - Nicotine dependence, cigarettes, with withdrawal (6) Substance induced mood disorder Status: Acute (7) Insomnia Status: Acute Qualifiers: Insomnia type: unspecified Qualified Code(s): G47.00 - Insomnia, unspecified - Initial Treatment Plan Initial Treatment Plan: Psychoeducation.Sleep hygiene.Detoxification in progress.Seroquel 100 mg po hs.Side effects/benefits discussed with patient.Mr Wilkins agrees to follow this careplan.Observation.
[2017-11-22] MEDS: THIAMINE HCL 100 MG TABLET (FP) PO SCH ×2 (22:21→22:23)
[2017-11-23] MEDS: diazePAM 5 MG TABLET PO PRN ×3 (08:55→18:06)
[2017-11-23] MEDS: PRENATAL VITAMINS W/ FOLIC ACID TABLET (FP) PO SCH (10:19)
[2017-11-23] MEDS: METHADONE HCL 5 MG TABLET (FOR DETOX USE ONLY) PO SCH (10:19)
[2017-11-23] MEDS: diazePAM 5 MG TABLET PO SCH ×2 (10:19→22:22)
--- NOTE | 2017-11-23 10:26 | PN ---
Psychiatric Progress Note Vital Signs: Vital Signs Period Temp Pulse Resp BP Sys/López Pulse Ox Last 24 Hr 96.2 F-97.9 F 62-105 16-18 107-128/67-87 Date of Session: 11/23/17 Chief Complaint:: " I need my seroquel at night." HPI: Benign hospital course.Patient complains of insomnia and he requests seroquel 100 mg at bedtime. ROS: Unremarkable. Current Medications: Active Medications Generic Name Dose Route Start Last Admin Trade Name Freq PRN Reason Stop Dose Admin Acetaminophen 650 mg 11/21/17 15:41 Tylenol - PO Q4H PRN FEVER Al Hydroxide/Mg Hydroxide 30 ml 11/21/17 15:41 Mylanta Oral Suspension - PO Q6H PRN DYSPEPSIA Diazepam 5 mg 11/23/17 10:00 11/23/17 10:19 Valium - PO 11/24/17 22:01 5 mg BID BRANDON Administration Diazepam 5 mg 11/25/17 10:00 Valium - PO 11/25/17 10:01 DAILY BRANDON Diazepam 10 mg 11/21/17 17:55 11/23/17 08:55 Valium - PO 11/24/17 17:55 10 mg Q4H PRN Administration WITHDRAWAL(CONT SUBST) Eucalyptus/Menthol/Phenol/Sorbitol 1 each 11/21/17 15:41 Cepastat Lozenge - MM Q4H PRN SORE THROAT Guaifenesin 10 ml 11/21/17 15:41 Robitussin Dm - PO Q6H PRN COUGH Hydroxyzine Pamoate 50 mg 11/21/17 15:41 Vistaril - PO Q4H PRN AGITATION Ibuprofen 400 mg 11/21/17 15:41 Motrin - PO Q6H PRN PAIN LEVEL 4-6 Loperamide HCl 4 mg 11/21/17 15:41 Imodium - PO Q6H PRN DIARRHEA Magnesium Citrate 300 ml 11/21/17 15:41 Citroma - PO Q48H PRN CONSTIPATION Magnesium Hydroxide 30 ml 11/21/17 15:41 Milk Of Magnesia - PO DAILY PRN CONSTIPATION Methadone HCl 10 mg 11/25/17 10:00 Dolophine - PO 11/25/17 10:01 DAILY BRANDON Methadone HCl 15 mg 11/23/17 10:00 11/23/17 10:19 Dolophine - PO 11/24/17 10:01 15 mg DAILY BRANDON Administration Methadone HCl 5 mg 11/26/17 06:00 Dolophine - PO 11/26/17 06:01 DAILY@0600 BRANDON Multivit/Folic Acid/Iron 1 tab 11/22/17 10:00 11/23/17 10:19 Vitamins (Sjr) - PO 1 tab DAILY BRANDON Administration Pseudoephedrine/Triprolidine 1 combo 11/21/17 15:41 Actifed - PO TID PRN NASAL CONGESTION Quetiapine Fumarate 100 mg 11/23/17 22:00 Seroquel - PO HS BRANDON Thiamine HCl 100 mg 11/21/17 22:00 11/22/17 22:23 Vitamin B1 - PO Not Given HS BRANDON Medication(s) Change(s): Seroquel 100 mg po hs.Side effects/benefits reviewed with the patient.Consent (verbal) given. Current Side Effect: No Lab tests ordered: No Lab tests reviewed: Yes Provider note:: Met with patient.Complaint of insomnia is validated.Sleep hygiene re-discussed and seroquel added to the regimen.Mr Zamudio has verbalized his agreement to this plan of care.Mental status remains stable.The patient is at his baseline. Total face to face time:: 25 Mental Status Exam - Mental Status Exam Alert and Oriented to: Time, Place, Person Cognitive Function: Good Patient Appearance: Well Groomed Mood: Hopeful, Euthymic Affect: Appropriate, Normal Range Patient Behavior: Appropriate, Cooperative Speech Pattern: Clear, Appropriate Voice Loudness: Normal Thought Process: Intact, Goal Oriented Thought Disorder: Not Present Hallucinations: Denies Suicidal Ideation: Denies Homicidal Ideation: Denies Insight/Judgement: Fair Sleep: Poorly, Difficulty falling asleep Appetite: Good Muscle strength/Tone: Normal Gait/Station: Normal Psychiatric Treatment Plan - Problem List (1) Opioid dependence with withdrawal Comment: . (2) Cocaine dependence Comment: . (3) Alcohol dependence with uncomplicated withdrawal Comment: . (4) Sedative, hypnotic or anxiolytic dependence with withdrawal, uncomplicated Comment: . (5) Nicotine dependence Qualifiers: Nicotine product type: cigarettes Substance use status: in withdrawal Qualified Code(s): F17.213 - Nicotine dependence, cigarettes, with withdrawal (6) Substance induced mood disorder Comment: . (7) Insomnia Qualifiers: Insomnia type: unspecified Qualified Code(s): G47.00 - Insomnia, unspecified Comment: .
--- NOTE | 2017-11-23 12:46 | PN ---
S CIWA - CIWA Score Nausea/Vomitin-No Nausea/No Vomiting Muscle Tremors: 4-Moderate,w/Arms Extend Anxiety: 4-Mod. Anxious/Guarded Agitation: 4-Moderately Restless Paroxysmal Sweats: 1-Minimal Palms Moist Orientation: 0-Oriented Tacttile Disturbances: 3-Moderate Itch/Numb/Burn Auditory Disturbances: 0-None Visual Disturbances: 0-None Headache: 0-None Present CIWA-Ar Total Score: 16 BHS COWS - Scale Resting Pulse: 1= [place] 81-100 Sweatin= Chills/Flushing Restless Observation: 3= Extraneous Movement Pupil Size: 0= Normal to Room Light Bone or Joint Aches: 4=Acute Joint/Muscle Pain Runny Nose/ Eye Tearin= Nasal Congestion GI Upset > 30mins: 0= None Tremor Observation of Outstretched Hands: 2= Slight Tremor Visible Yawning Observation: 1= 1-2x During Session Anxiety or Irritability: 2=Irritable/Anxious Goose Flesh Skin: 0=Smooth Skin COWS Score: 15 S Progress Note (SOAP) Subjective: ANXIETY,SWEATS, INTERMITTENT SLEEP. Objective: 11/23/17 12:47 Vital Signs Temperature 96.2 F L 11/23/17 09:17 Pulse Rate 88 11/23/17 09:17 Respiratory Rate 18 11/23/17 09:17 Blood Pressure 115/78 11/23/17 09:17 O2 Sat by Pulse Oximetry (%) Laboratory Last Values Urine Color Yellow 11/21/17 22:40 Urine Appearance Clear 11/21/17 22:40 Urine pH 5.0 (5.0-8.0) 11/21/17 22:40 Ur Specific [place] 1.024 (1.001-1.035) 11/21/17 22:40 Urine Protein Negative (NEGATIVE) 11/21/17 22:40 Urine Glucose (UA) Negative (NEGATIVE) 11/21/17 22:40 Urine Ketones Negative (NEGATIVE) 11/21/17 22:40 Urine Blood Negative (NEGATIVE) 11/21/17 22:40 Urine Nitrite Negative (NEGATIVE) 11/21/17 22:40 Urine Bilirubin Negative (NEGATIVE) 11/21/17 22:40 Urine Urobilinogen Negative mg/dL (0.2-1.0) 11/21/17 22:40 Ur Leukocyte Esterase Negative (NEGATIVE) 11/21/17 22:40 Assessment: 11/23/17 12:47 WITHDRAWAL SX Plan: CONTINUE DETOX
[2017-11-23] MEDS: THIAMINE HCL 100 MG TABLET (FP) PO SCH (22:22)
[2017-11-23] MEDS: QUEtiapine FUMARATE 100 MG TABLET (FP) PO SCH (22:22)
[2017-11-24] MEDS: METHADONE HCL 5 MG TABLET (FOR DETOX USE ONLY) PO SCH (10:33)
[2017-11-24] MEDS: diazePAM 5 MG TABLET PO SCH ×2 (10:34→22:29)
[2017-11-24] MEDS: PRENATAL VITAMINS W/ FOLIC ACID TABLET (FP) PO SCH (10:34)
[2017-11-24] MEDS: diazePAM 5 MG TABLET PO PRN ×2 (12:34→17:30)
--- NOTE | 2017-11-24 13:09 | PN ---
[facility] Progress Note (SOAP) Subjective: IRRITABILITY,RESTLESSNESS, ANGRY OUTBURSTS WHEN ASKED FOR ROUTINE VITAL SIGNS- STATES "I DID NOT SLEEP ALL NIGHT". Objective: 11/24/17 13:12 Vital Signs Temperature 98.4 F 11/24/17 13:11 Pulse Rate 91 H 11/24/17 13:11 Respiratory Rate 18 11/24/17 13:11 Blood Pressure 113/76 11/24/17 13:11 O2 Sat by Pulse Oximetry (%) Laboratory Last Values Urine Color Yellow 11/21/17 22:40 Urine Appearance Clear 11/21/17 22:40 Urine pH 5.0 (5.0-8.0) 11/21/17 22:40 Ur Specific [place] 1.024 (1.001-1.035) 11/21/17 22:40 Urine Protein Negative (NEGATIVE) 11/21/17 22:40 Urine Glucose (UA) Negative (NEGATIVE) 11/21/17 22:40 Urine Ketones Negative (NEGATIVE) 11/21/17 22:40 Urine Blood Negative (NEGATIVE) 11/21/17 22:40 Urine Nitrite Negative (NEGATIVE) 11/21/17 22:40 Urine Bilirubin Negative (NEGATIVE) 11/21/17 22:40 Urine Urobilinogen Negative mg/dL (0.2-1.0) 11/21/17 22:40 Ur Leukocyte Esterase Negative (NEGATIVE) 11/21/17 22:40 OTHER LABS PENDING Assessment: 11/24/17 13:12 WITHDRAWAL SX Plan: CONTINUE DETOX
[2017-11-24] MEDS: THIAMINE HCL 100 MG TABLET (FP) PO SCH (22:29)
[2017-11-24] MEDS: QUEtiapine FUMARATE 100 MG TABLET (FP) PO SCH (22:29)
[2017-11-25] MEDS ORDERED: diazePAM 5 MG TABLET PO SCH (10:00)
[2017-11-25] MEDS ORDERED: METHADONE HCL 10 MG TABLET (FOR DETOX USE ONLY) PO SCH (10:00)
[2017-11-25] MEDS: PRENATAL VITAMINS W/ FOLIC ACID TABLET (FP) PO SCH (10:01)
--- NOTE | 2017-11-25 12:56 | PN ---
[facility] Progress Note (SOAP) Subjective: DECREASED ANXIETY, IRRITABILITY,SWEATS. Objective: 11/25/17 12:54 Vital Signs Temperature 96.7 F L 11/25/17 11:14 Pulse Rate 99 H 11/25/17 11:14 Respiratory Rate 20 11/25/17 11:14 Blood Pressure 110/70 11/25/17 11:14 O2 Sat by Pulse Oximetry (%) Laboratory Last Values Urine Color Yellow 11/21/17 22:40 Urine Appearance Clear 11/21/17 22:40 Urine pH 5.0 (5.0-8.0) 11/21/17 22:40 Ur Specific [place] 1.024 (1.001-1.035) 11/21/17 22:40 Urine Protein Negative (NEGATIVE) 11/21/17 22:40 Urine Glucose (UA) Negative (NEGATIVE) 11/21/17 22:40 Urine Ketones Negative (NEGATIVE) 11/21/17 22:40 Urine Blood Negative (NEGATIVE) 11/21/17 22:40 Urine Nitrite Negative (NEGATIVE) 11/21/17 22:40 Urine Bilirubin Negative (NEGATIVE) 11/21/17 22:40 Urine Urobilinogen Negative mg/dL (0.2-1.0) 11/21/17 22:40 Ur Leukocyte Esterase Negative (NEGATIVE) 11/21/17 22:40 PT REFUSED HIS LABS TO BE DRAWN SECOND REQUEST. Assessment: 11/25/17 12:55 WITHDRAWAL SX Plan: CONTINUE DETOX
[2017-11-25 21:48] VITALS: BP 93/63; PULSE 95; TEMP 98.4
[2017-11-25] MEDS: QUEtiapine FUMARATE 100 MG TABLET (FP) PO SCH (22:20)
[2017-11-25] MEDS: THIAMINE HCL 100 MG TABLET (FP) PO SCH (22:20)
[2017-11-26] MEDS ORDERED: METHADONE HCL 5 MG TABLET (FOR DETOX USE ONLY) PO SCH (06:00)
--- NOTE | 2017-11-26 08:30 | DS ---
[facility] Detox Discharge Summary Admission Date: 11/21/17 Discharge Date: 11/26/17 - History Present History: Alcohol Dependence, Cocaine Dependence, Opioid Dependence Additional Comments: DETOX COMPLETED.ALERT O X3. NAD. Pertinent Past History: SEE DX BELOW - Physical Exam Results Vital Signs: Vital Signs Temperature 98.4 F 11/25/17 21:48 Pulse Rate 95 H 11/25/17 21:48 Respiratory Rate 18 11/26/17 03:30 Blood Pressure 93/63 11/25/17 21:48 O2 Sat by Pulse Oximetry (%) Pertinent Admission Physical Exam Findings: WITHDRAWAL SX Laboratory Last Values Urine Color Yellow 11/21/17 22:40 Urine Appearance Clear 11/21/17 22:40 Urine pH 5.0 (5.0-8.0) 11/21/17 22:40 Ur Specific [place] 1.024 (1.001-1.035) 11/21/17 22:40 Urine Protein Negative (NEGATIVE) 11/21/17 22:40 Urine Glucose (UA) Negative (NEGATIVE) 11/21/17 22:40 Urine Ketones Negative (NEGATIVE) 11/21/17 22:40 Urine Blood Negative (NEGATIVE) 11/21/17 22:40 Urine Nitrite Negative (NEGATIVE) 11/21/17 22:40 Urine Bilirubin Negative (NEGATIVE) 11/21/17 22:40 Urine Urobilinogen Negative mg/dL (0.2-1.0) 11/21/17 22:40 Ur Leukocyte Esterase Negative (NEGATIVE) 11/21/17 22:40 PT REFUSED BOOD WORK X 2 ATTEMPTS THIS ADMISSION - Treatment Hospital Course: Detox Protocol Followed, Detoxed Safely, Responded well, Discharged Condition Good Patient has Accepted a Rehab Referral to: DECLINED - Medication Discharge Medications: Ambulatory Orders Quetiapine Fumarate [Seroquel] 100 mg PO HS #30 tablet 11/23/17 - Diagnosis (1) Alcohol dependence with uncomplicated withdrawal Status: Acute (2) Opioid dependence with withdrawal Status: Acute (3) Weight loss Status: Acute (4) Nicotine dependence Status: Acute Qualifiers: Nicotine product type: cigarettes Substance use status: in withdrawal Qualified Code(s): F17.213 - Nicotine dependence, cigarettes, with withdrawal (5) Sedative, hypnotic or anxiolytic dependence with withdrawal, uncomplicated Status: Acute - AMA Did Patient Leave Against Medical Advice: No
== END 2017-11-26 09:10 | disposition home or self-care (01) | DRG 773 ==
LOC: YASAS 11:02 → Y3N 16:33
PROVIDERS: ADMIT Internal Medicine; ATTEND Internal Medicine
PROC: HZ2ZZZZ Detoxification Services for Substance Abuse Treatment (ICD-10-PCS; principal; 2017-11-21)
DX: F11.23 Opioid dependence with withdrawal (principal); F13.230 Sedative, hypnotic or anxiolytic dependence with withdrawal, uncomplicated; F10.230 Alcohol dependence with withdrawal, uncomplicated; F14.20 Cocaine dependence, uncomplicated; F17.213 Nicotine dependence, cigarettes, with withdrawal; F19.24 Other psychoactive substance dependence with psychoactive substance-induced mood disorder; G47.00 Insomnia, unspecified; B18.2 Chronic viral hepatitis C; Z87.898 Personal history of other specified conditions
CPT/HCPCS: 81003; 93005; 93010

== ENCOUNTER 2017-12-25 13:16 | Inpatient (IN) | payer OTHER ==
[2017-12-25 14:38] VITALS: BMI 23.6
--- NOTE | 2017-12-25 17:09 | HP ---
COWS - Scale Resting Pulse: 1= [place] 81-100 Sweatin=Flushed/Facial Moisture Restless Observation: 1= Difficult to Sit Still Pupil Size: 1= Pupils >than Normal Bone or Joint Aches: 1= Mild Discomfort Runny Nose/ Eye Tearin= Runny Nose/Eyes GI Upset > 30mins: 2= Nausea/Diarrhea Tremor Observation: 2= Slight Tremor Visible Yawning Observation: 1= 1-2x During Session Anxiety or Irritability: 1=Feels Anxious/Irritable Goose Flesh Skin: 3=Piloerection COWS Score: 17 CIWA Score - CIWA Score Nausea/Vomitin Muscle Tremors: 3 Anxiety: 2 Agitation: 2 Paroxysmal Sweats: 2 Orientation: 0-Oriented Tacttile Disturbances: 1-Very Mild Itch/Numbness Auditory Disturbances: 1-Very Mild Visual Disturbances: 1-Very Mild Sensitivity Headache: 1-Very Mild CIWA-Ar Total Score: 15 Admission ROS BHS - HPI Chief Complaint: I am here again for help, I relapsed as soon as I was discharged Allergies/Adverse Reactions: Allergies Allergy/AdvReac Type Severity Reaction Status Date / Time No Known Allergies Allergy Verified 11/21/17 15:27 History of Present Illness: This is a 37 year old male with alcohol dependence and poly substance abuse who completed detox in November of 2017, returns for detox because he relapsed right after his discharge. He reports sobriety for 5 years between 2003 and 2008. Exam Limitations: No Limitations - Ebola screening Have you traveled outside of the country in the last 21 days: No (N) Have you had contact with anyone from an Ebola affected area: No Have you been sick,other than usual withdrawal symptoms: No Do you have a fever: No - Review of Systems Constitutional: Chills, Loss of Appetite, Changes in sleep EENT: reports: Nose Congestion Respiratory: reports: No Symptoms reported Cardiac: reports: No Symptoms Reported GI: reports: Nausea, Poor Appetite, Poor Fluid Intake, Abdominal cramping : reports: No Symptoms Reported Musculoskeletal: reports: Back Pain, Muscle Pain Integumentary: reports: Flushing Neuro: reports: Headache, Numbness Endocrine: reports: No Symptoms Reported Hematology: reports: No Symptoms Reported Psychiatric: reports: No Sypmtoms Reported Other Systems: Reviewed and Negative Patient History - Patient Medical History Hx Anemia: No Hx Asthma: No Hx Chronic Obstructive Pulmonary Disease (COPD): No Hx Cancer: No Hx Cardiac Disorders: No Hx Congestive Heart Failure: No Hx Hypertension: No Hx Hypercholesterolemia: No Hx Pacemaker: No HX Cerebrovascular Accident: No Hx Seizures: No Hx Dementia: No Hx Diabetes: No Hx Gastrointestinal Disorders: No Hx Liver Disease: Yes (Hep C) Hx Genitourinary Disorders: No Hx Sexually Transmitted Disorders: No Hx Renal Disease (ESRD): No Hx Thyroid Disease: No Hx Human Immunodeficiency Virus (HIV): No (Last Tested: 05/2017: NEGATIVE.) Hx Hepatitis C: Yes (Positive Ab (Dx'd 09/2016), Undetectable Viral Load since then.) Hx Depression: No Hx Suicide Attempt: No (PATIENT DENIES CURRENT SI / HI.) Hx Bipolar Disorder: No Hx Schizophrenia: No - Patient Surgical History Past Surgical History: No - PPD History Previous Implant?: Yes Documented Results: Negative w/proof Implanted On Prior [facility] Admission?: Yes Date: 11/23/17 Results: 0 mm PPD to be Administered?: No - Smoking Cessation Smoking history: Current every day smoker Have you smoked in the past 12 months: Yes Aproximately how many cigarettes per day: 20 Cigars Per Day: 0 Hx Chewing Tobacco Use: No Initiated information on smoking cessation: Yes 'Breaking Loose' booklet given: 12/25/17 - Substance & Tx. History Hx Alcohol Use: Yes (Beer, vodka, whisky) Substance Use Type: Alcohol, Cocaine, Opiates, Tranquilizers Hx Substance Use Treatment: Yes - Substances Abused Alcohol Route: Oral Frequency: Daily Amount used: 3 pints of liqour, 6 packs of beer Age of first use: 15 Date of Last Use: 12/24/17 Alprazolam (Xanax) Route: Oral Frequency: Daily Amount used: 4 stix Age of first use: 22 Date of Last Use: 12/25/17 Heroin Route: Injection Frequency: Daily Amount used: 15 bags Age of first use: 15 Date of Last Use: 12/25/17 Cocaine Route: Smoking Frequency: 1-3 times last 30 days Amount used: $20 Age of first use: 14 Date of Last Use: 12/23/17 Family Disease History - Family Disease History Family Disease History: CA: Mother (throat ), Other: Father (kidney; ) Admission Physical Exam BHS - Vital Signs Vital Signs: Vital Signs - 24 hr 12/25/17 14:37 Temperature 97.6 F Pulse Rate 89 Respiratory 18 Rate Blood Pressure 146/84 - Physical General Appearance: Yes: No Apparent Distress, Disheveled HEENTM: Yes: Hearing grossly Normal, Normocephalic, Normal Voice Respiratory: Yes: Chest Non-Tender, Normal Breath Sounds, No Respiratory Distress, No Accessory Muscle Use Neck: Yes: No masses,lesions,Nodules, Supple Breast: Yes: Breast Exam Deferred Cardiology: Yes: Regular Rhythm, Regular Rate, S1, S2 Abdominal: Yes: Normal Bowel Sounds, Non Tender, Soft Genitourinary: Yes: Within Normal Limits Back: Yes: Normal Inspection Musculoskeletal: Yes: Gait Steady, Muscle Pain Extremities: Yes: Non-Tender, Tremors Neurological: Yes: Fully Oriented, Normal Mood/Affect, Normal Response Integumentary: Yes: Normal Color, Track Jose (right forearm) - Diagnostic (1) Alcohol dependence with uncomplicated withdrawal Current Visit: Yes Status: Acute Comment: . (2) Cocaine dependence Current Visit: Yes Status: Acute Qualifiers: Substance use status: uncomplicated Qualified Code(s): F14.20 - Cocaine dependence, uncomplicated (3) Nicotine dependence Current Visit: Yes Status: Acute Qualifiers: Nicotine product type: cigarettes Substance use status: uncomplicated Qualified Code(s): F17.210 - Nicotine dependence, cigarettes, uncomplicated (4) Opioid dependence with withdrawal Current Visit: Yes Status: Acute Comment: . (5) Sedative, hypnotic or anxiolytic dependence with withdrawal, uncomplicated Current Visit: Yes Status: Acute Comment: . (6) Hepatitis C antibody test positive Current Visit: No Status: Chronic Comment: scheduled for treatment with primary care physician Cleared for Admission [facility] - Detox or Rehab [facility] Level of Care: Medically Managed Detox Regimen/Protocol: Methadone/Valium [facility] Breath Alcohol Content Breath Alcohol Content: 0 Urine Drug Screen - Results Drug Screen Negative: No Urine Drug Screen Results: ROMAIN-Cocaine, OPI-Opiates, BZO-Benzodiazepines
[2017-12-25] MEDS ORDERED: hydrOXYzine PAMOATE 50 MG CAPSULE (FP) PO PRN (17:22)
[2017-12-25] MEDS ORDERED: LOPERAMIDE HCL 2 MG CAPSULE PO PRN (17:22)
[2017-12-25] MEDS ORDERED: MAGNESIUM CITRATE 300 ML BOTTLE PO PRN (17:22)
[2017-12-25] MEDS ORDERED: P-EPHED 60MG/TRIPROLIDI 2.5MG TABLET PO PRN (17:22)
[2017-12-25] MEDS ORDERED: ACETAMINOPHEN 325 MG TABLET (FP) PO PRN (17:22)
[2017-12-25] MEDS ORDERED: IBUPROFEN 400 MG TABLET (FP) PO PRN (17:22)
[2017-12-25] MEDS ORDERED: guaiFENesin/D-METHORPHAN HB 10 ML UNIT-DOSE CUPS PO PRN (17:22)
[2017-12-25] MEDS ORDERED: MENTHOL/PHENOL 1 EACH UD MM PRN (17:22)
[2017-12-25] MEDS ORDERED: MAGNESIUM HYDROX 2400MG/30ML ORAL SUSPENSION 30 ML CUP PO PRN (17:22)
[2017-12-25] MEDS ORDERED: MAG HYDROX/AL HYDROX/SIMETH 30 ML UNIT-DOSE CUP PO PRN (17:22)
[2017-12-25] MEDS ORDERED: diazePAM 5 MG TABLET PO ONE (17:22)
[2017-12-25] MEDS ORDERED: METHADONE HCL 10 MG TABLET (FOR DETOX USE ONLY) PO ONE ×2 (17:22→23:00)
[2017-12-25] MEDS ORDERED: METHADONE HCL 10 MG TABLET (FOR DETOX USE ONLY) ONE (19:52)
[2017-12-25] MEDS: NICOTINE 14 MG/24 HOURS TOPICAL PATCH TD SCH (19:58)
[2017-12-25] MEDS ORDERED: MELATONIN 5 MG TABLETS PO PRN (22:00)
[2017-12-25] MEDS: THIAMINE HCL 100 MG TABLET (FP) PO SCH (22:39)
[2017-12-25] MEDS: diazePAM 5 MG TABLET PO SCH (22:39)
[2017-12-25 23:27] LABS: URINE APPEARANCE CLEAR; URINE BILIRUBIN NEGATIVE (<2.0 mg/dL); URINE BLOOD NEGATIVE (NEGATIVE); URINE COLOR YELLOW; URINE GLUCOSE (UA) NEGATIVE (NEGATIVE); URINE KETONE NEGATIVE (NEGATIVE); URINE LEUK ESTERASE TRACE (NEGATIVE); URINE NITRITE NEGATIVE (NEGATIVE); URINE PROTEIN NEGATIVE (NEGATIVE); URINE UROBILINOGEN NEGATIVE mg/dL (0.2-1.0)
[2017-12-25 23:31] LABS: EPI CELLS RARE /HPF (FEW); URINE MUCUS FEW
[2017-12-26] MEDS: diazePAM 5 MG TABLET PO SCH ×3 (05:19→22:15)
[2017-12-26] MEDS ORDERED: METHADONE HCL 10 MG TABLET (FOR DETOX USE ONLY) PO SCH (10:00)
[2017-12-26] MEDS: NICOTINE 14 MG/24 HOURS TOPICAL PATCH TD SCH (10:32)
[2017-12-26] MEDS: diazePAM 5 MG TABLET PO PRN ×2 (10:32→19:07)
[2017-12-26] MEDS: PRENATAL VITAMINS W/ FOLIC ACID TABLET (FP) PO SCH (10:32)
--- NOTE | 2017-12-26 14:46 | EKG ---
Test Reason : Blood Pressure : / mmHG Vent. Rate : 065 BPM Atrial Rate : 065 BPM P-R Int : 158 ms QRS Dur : 100 ms QT Int : 414 ms P-R-T Axes : 032 057 064 degrees QTc Int : 430 ms NORMAL SINUS RHYTHM NORMAL ECG WHEN COMPARED WITH ECG OF 21-NOV-2017 18:23, NO SIGNIFICANT CHANGE WAS FOUND Confirmed by JULIAN RANDOLPH MD ([id number]) on 12/26/2017 2:45:48 PM Referred By: Confirmed By:JULIAN RANDOLPH MD
--- NOTE | 2017-12-26 15:44 | PN ---
S CIWA - CIWA Score Nausea/Vomitin Muscle Tremors: 4-Moderate,w/Arms Extend Anxiety: 4-Mod. Anxious/Guarded Agitation: 4-Moderately Restless Paroxysmal Sweats: 3 Orientation: 0-Oriented Tacttile Disturbances: 1-Very Mild Itch/Numbness Auditory Disturbances: 0-None Visual Disturbances: 0-None Headache: 1-Very Mild CIWA-Ar Total Score: 20 BHS COWS - Scale Resting Pulse: 1= [place] 81-100 Sweatin= Chills/Flushing Restless Observation: 3= Extraneous Movement Pupil Size: 0= Normal to Room Light Bone or Joint Aches: 2= Severe Diffuse Aches Runny Nose/ Eye Tearin= Runny Nose/Eyes GI Upset > 30mins: 2= Nausea/Diarrhea Tremor Observation of Outstretched Hands: 2= Slight Tremor Visible Yawning Observation: 0= None Anxiety or Irritability: 2=Irritable/Anxious Goose Flesh Skin: 0=Smooth Skin COWS Score: 15 BHS Progress Note (SOAP) Subjective: Anxious, sweating, interrupted sleep Objective: 12/26/17 15:42 Last Vital Signs Temp Pulse Resp BP Pulse Ox 96.1 F L 88 18 132/76 12/26/17 14:28 12/26/17 14:28 12/26/17 14:28 12/26/17 14:28 Laboratory Tests 12/25/17 21:00 Urine Color Yellow Urine Appearance Clear Urine pH 6.0 Ur Specific [place] 1.021 Urine Protein Negative Urine Glucose (UA) Negative Urine Ketones Negative Urine Blood Negative Urine Nitrite Negative Urine Bilirubin Negative Urine Urobilinogen Negative Ur Leukocyte Esterase Trace Urine WBC (Auto) 63 Urine RBC (Auto) 2 Ur Epithelial Cells Rare Urine Mucus Few UA noted Assessment: 12/26/17 15:43 Withdrawal symptoms Plan: Continue detox Encouraged to drink lots of water for hydration Admission labs reordered in AM
[2017-12-26] MEDS: THIAMINE HCL 100 MG TABLET (FP) PO SCH (22:15)
[2017-12-27] MEDS: diazePAM 5 MG TABLET PO SCH ×2 (10:18→22:14)
[2017-12-27] MEDS: METHADONE HCL 5 MG TABLET (FOR DETOX USE ONLY) PO SCH (10:18)
[2017-12-27] MEDS: PRENATAL VITAMINS W/ FOLIC ACID TABLET (FP) PO SCH (10:18)
[2017-12-27] MEDS: NICOTINE 14 MG/24 HOURS TOPICAL PATCH TD SCH (10:18)
--- NOTE | 2017-12-27 11:29 | PN ---
[facility] CIWA - CIWA Score Nausea/Vomitin-No Nausea/No Vomiting Muscle Tremors: 4-Moderate,w/Arms Extend Anxiety: 4-Mod. Anxious/Guarded Agitation: 4-Moderately Restless Paroxysmal Sweats: 1-Minimal Palms Moist Orientation: 0-Oriented Tacttile Disturbances: 3-Moderate Itch/Numb/Burn Auditory Disturbances: 0-None Visual Disturbances: 0-None Headache: 0-None Present CIWA-Ar Total Score: 16 S COWS - Scale Resting Pulse: 0= [place] 80 or Below Sweatin= Chills/Flushing Restless Observation: 3= Extraneous Movement Pupil Size: 0= Normal to Room Light Bone or Joint Aches: 4=Acute Joint/Muscle Pain Runny Nose/ Eye Tearin= Nasal Congestion GI Upset > 30mins: 0= None Tremor Observation of Outstretched Hands: 1= Tremor [place], Not Seen Yawning Observation: 1= 1-2x During Session Anxiety or Irritability: 1=Feels Anxious/Irritable Goose Flesh Skin: 0=Smooth Skin COWS Score: 12 [facility] Progress Note (SOAP) Subjective: ANXIETY,SWEATS,RESTLESSNESS,INTERMITTENT SLEEP Objective: 12/27/17 11:29 Vital Signs Temperature 96.3 F L 12/27/17 09:20 Pulse Rate 58 L 12/27/17 09:20 Respiratory Rate 18 12/27/17 09:20 Blood Pressure 116/69 12/27/17 09:20 O2 Sat by Pulse Oximetry (%) Laboratory Last Values Urine Color Yellow 12/25/17 21:00 Urine Appearance Clear 12/25/17 21:00 Urine pH 6.0 (5.0-8.0) 12/25/17 21:00 Ur Specific [place] 1.021 (1.001-1.035) 12/25/17 21:00 Urine Protein Negative (NEGATIVE) 12/25/17 21:00 Urine Glucose (UA) Negative (NEGATIVE) 12/25/17 21:00 Urine Ketones Negative (NEGATIVE) 12/25/17 21:00 Urine Blood Negative (NEGATIVE) 12/25/17 21:00 Urine Nitrite Negative (NEGATIVE) 12/25/17 21:00 Urine Bilirubin Negative (<2.0 mg/dL) 12/25/17 21:00 Urine Urobilinogen Negative mg/dL (0.2-1.0) 12/25/17 21:00 Ur Leukocyte Esterase Trace (NEGATIVE) 12/25/17 21:00 Urine WBC (Auto) 63 /hpf (3-5) 12/25/17 21:00 Urine RBC (Auto) 2 /hpf (0-3) 12/25/17 21:00 Ur Epithelial Cells Rare /HPF (FEW) 12/25/17 21:00 Urine Mucus Few 12/25/17 21:00 OTHER LABS PENDING Assessment: 12/27/17 11:29 WITHDRAWAL SX Plan: CONTINUE DETOX
[2017-12-27] MEDS: diazePAM 5 MG TABLET PO PRN ×2 (13:00→20:37)
--- NOTE | 2017-12-27 14:03 | CONSULT ---
[facility] Psychiatric Consult - Data Date of interview: 12/27/17 Admission source: [facility] Identifying data: Readmission to [facility] for this 37 y/o [place]-born male seeking detox treatment on 3 for heroin,xanax,cocaine and alcohol dependence.Patient is single without children,domiciled and currently employed ( [employer]). Substance Abuse History: Confirmed by patient in this interview.Details in current [facility] report : Smoking history: Current every day smoker. Have you smoked in the past 12 months: Yes. Aproximately how many cigarettes per day: 20. Cigars Per Day: 0. Hx Chewing Tobacco Use: No. Initiated information on smoking cessation: Yes. 'Breaking Loose' booklet given: 12/25/17. - Substance & Tx. History. Hx Alcohol Use: Yes (Beer, vodka, whisky). Substance Use Type: Alcohol, Cocaine, Opiates, Tranquilizers. Hx Substance Use Treatment: Yes. - Substances Abused. Alcohol. Route: Oral. Frequency: Daily. Amount used: 3 pints of liqour, 6 packs of beer. Age of first use: 15. Date of Last Use: . Alprazolam (Xanax). Route: Oral. Frequency: Daily. Amount used: 4 stix. Age of first use: 22. Date of Last Use: 12/25/17. Heroin. Route: Injection. Frequency: Daily. Amount used: 15 bags. Age of first use: 15. Date of Last Use: 12/25/17. Cocaine. Route: Smoking. Frequency: 1-3 times last 30 days. Amount used: $20. Age of first use: 14. Date of Last Use: 12/23 Medical History: Hepatitis C. Psychiatric History: No history of psychiatric hospitalizations.Patient used to be on seroquel 200 mg/hs (during previous treatment at [facility]).Declines to resume seroquel because of weight gain.Mr Zamudio denies affiliation with psychiatric OPD care providers.No adherence to medications once discharged fron detox/rehab units.Patient denies history of suicide attempts. Physical/Sexual Abuse/Trauma History: No history. Additional Comment: Urine Drug Screen Results: ROMAIN-Cocaine, OPI-Opiates, BZO- Benzodiazepines.Noted. Mental Status Exam - Mental Status Exam Alert and Oriented to: Time, Place, Person Cognitive Function: Good Patient Appearance: Well Groomed Mood: Nervous, Withdrawn (dysphoric) Affect: Appropriate, Normal Range Patient Behavior: Cooperative Speech Pattern: Clear, Appropriate Voice Loudness: Normal Thought Process: Intact, Goal Oriented Thought Disorder: Not Present Hallucinations: Denies Suicidal Ideation: Denies Homicidal Ideation: Denies Insight/Judgement: Poor Sleep: Poorly, Difficulty falling asleep Appetite: Good Muscle strength/Tone: Normal Gait/Station: Normal Psychiatric Findings - Problem List ([place] 1, 2,3) (1) Alcohol dependence with uncomplicated withdrawal Current Visit: Yes Status: Acute Comment: . (2) Opioid dependence with withdrawal Current Visit: Yes Status: Acute Comment: . (3) Sedative, hypnotic or anxiolytic dependence with withdrawal, uncomplicated Current Visit: Yes Status: Acute Comment: . (4) Cocaine dependence Current Visit: Yes Status: Acute Qualifiers: Substance use status: uncomplicated Qualified Code(s): F14.20 - Cocaine dependence, uncomplicated (5) Nicotine dependence Current Visit: Yes Status: Acute Qualifiers: Nicotine product type: cigarettes Substance use status: in withdrawal Qualified Code(s): F17.213 - Nicotine dependence, cigarettes, with withdrawal (6) Substance induced mood disorder Current Visit: Yes Status: Acute Comment: . (7) Insomnia Current Visit: Yes Status: Acute Qualifiers: Insomnia type: unspecified Qualified Code(s): G47.00 - Insomnia, unspecified Comment: . - Initial Treatment Plan Initial Treatment Plan: Psychoeducation.Sleep hygiene discussed.Detoxification in progress.Ambien 10 mg po hs prn.Risk of parasomnias discussed with patient.Mr Zamudio agrees with this careplan.Observation.
[2017-12-27] MEDS: ZOLPIDEM TARTRATE 10 MG TABLET (PARK CARE ONLY) PO PRN (22:14)
[2017-12-27] MEDS: NICOTINE POLACRILEX 2 MG GUM BC PRN (22:15)
[2017-12-27] MEDS: THIAMINE HCL 100 MG TABLET (FP) PO SCH (23:51)
[2017-12-28] MEDS: diazePAM 5 MG TABLET PO PRN ×2 (05:13→12:52)
[2017-12-28] MEDS: diazePAM 5 MG TABLET PO SCH ×2 (10:10→22:40)
[2017-12-28] MEDS: NICOTINE POLACRILEX 2 MG GUM BC PRN ×3 (10:12→18:35)
[2017-12-28] MEDS: METHADONE HCL 5 MG TABLET (FOR DETOX USE ONLY) PO SCH (10:12)
[2017-12-28] MEDS: NICOTINE 14 MG/24 HOURS TOPICAL PATCH TD SCH (10:51)
[2017-12-28] MEDS: PRENATAL VITAMINS W/ FOLIC ACID TABLET (FP) PO SCH (10:51)
--- NOTE | 2017-12-28 11:44 | PN ---
BHS Progress Note (SOAP) Subjective: IRRITABILITY,RESTLESS,ANXIETY, INSOMNIA -"AMBIEN NOT WORKING", PT REFUSED LABS TO BE DRAWN. Objective: 12/28/17 11:43 Vital Signs Temperature 97.1 F L 12/28/17 09:49 Pulse Rate 64 12/28/17 09:49 Respiratory Rate 18 12/28/17 09:49 Blood Pressure 107/63 12/28/17 09:49 O2 Sat by Pulse Oximetry (%) Laboratory Last Values Urine Color Yellow 12/25/17 21:00 Urine Appearance Clear 12/25/17 21:00 Urine pH 6.0 (5.0-8.0) 12/25/17 21:00 Ur Specific [place] 1.021 (1.001-1.035) 12/25/17 21:00 Urine Protein Negative (NEGATIVE) 12/25/17 21:00 Urine Glucose (UA) Negative (NEGATIVE) 12/25/17 21:00 Urine Ketones Negative (NEGATIVE) 12/25/17 21:00 Urine Blood Negative (NEGATIVE) 12/25/17 21:00 Urine Nitrite Negative (NEGATIVE) 12/25/17 21:00 Urine Bilirubin Negative (<2.0 mg/dL) 12/25/17 21:00 Urine Urobilinogen Negative mg/dL (0.2-1.0) 12/25/17 21:00 Ur Leukocyte Esterase Trace (NEGATIVE) 12/25/17 21:00 Urine WBC (Auto) 63 /hpf (3-5) 12/25/17 21:00 Urine RBC (Auto) 2 /hpf (0-3) 12/25/17 21:00 Ur Epithelial Cells Rare /HPF (FEW) 12/25/17 21:00 Urine Mucus Few 12/25/17 21:00 REPEAT UA UNCOLLECTED PT REFUSED CMP,CBC AND RPR DRAWING THIS ADMISSION. PT HAS A PASSED HX OF REFUSAL LAST ADMISSION IN 11/2017. Assessment: 12/28/17 11:50 WITHDRAWAL SX Plan: CONTINUE DETOX F/U WITH PSYCH MD TODAY FOR INSOMNIA W/UP.
[2017-12-28 16:55] LABS: URINE APPEARANCE CLEAR; URINE BILIRUBIN NEGATIVE (<2.0 mg/dL); URINE BLOOD NEGATIVE (NEGATIVE); URINE COLOR DKYELLOW; URINE GLUCOSE (UA) NEGATIVE (NEGATIVE); URINE KETONE NEGATIVE (NEGATIVE); URINE LEUK ESTERASE NEGATIVE (NEGATIVE); URINE NITRITE NEGATIVE (NEGATIVE); URINE PROTEIN NEGATIVE (NEGATIVE); URINE UROBILINOGEN NEGATIVE mg/dL (0.2-1.0)
--- NOTE | 2017-12-28 17:22 | PN ---
Psychiatric Progress Note Vital Signs: Vital Signs Period Temp Pulse Resp BP Sys/López Pulse Ox Last 24 Hr 97.1 F-98.2 F 53-96 18-20 100-111/63-74 Date of Session: 12/28/17 Chief Complaint:: " I still cannot sleep at night." HPI: Day 3 of detoxification.Patient is doing well except for complaint of insomnia. ROS: Unremarkable. Current Medications: Active Medications Generic Name Dose Route Start Last Admin Trade Name Freq PRN Reason Stop Dose Admin Acetaminophen 650 mg 12/25/17 17:22 Tylenol - PO Q4H PRN FEVER Al Hydroxide/Mg Hydroxide 30 ml 12/25/17 17:22 Mylanta Oral Suspension - PO Q6H PRN DYSPEPSIA Diazepam 5 mg 12/27/17 10:00 12/28/17 10:10 Valium - PO 12/28/17 22:01 5 mg BID BRANDON Administration Diazepam 5 mg 12/29/17 10:00 Valium - PO 12/29/17 10:01 DAILY BRANDON Diazepam 10 mg 12/25/17 17:22 12/28/17 12:52 Valium - PO 12/28/17 17:22 10 mg Q4H PRN Administration WITHDRAWAL(CONT SUBST) Eucalyptus/Menthol/Phenol/Sorbitol 1 each 12/25/17 17:22 Cepastat Lozenge - MM Q4H PRN SORE THROAT Guaifenesin 10 ml 12/25/17 17:22 Robitussin Dm - PO Q6H PRN COUGH Hydroxyzine Pamoate 50 mg 12/25/17 17:22 Vistaril - PO Q4H PRN AGITATION Ibuprofen 400 mg 12/25/17 17:22 Motrin - PO Q6H PRN PAIN LEVEL 4-6 Loperamide HCl 4 mg 12/25/17 17:22 Imodium - PO Q6H PRN DIARRHEA Magnesium Citrate 300 ml 12/25/17 17:22 Citroma - PO Q48H PRN CONSTIPATION Magnesium Hydroxide 30 ml 12/25/17 17:22 Milk Of Magnesia - PO DAILY PRN CONSTIPATION Melatonin 5 mg 12/25/17 22:00 12/26/17 22:15 Melatonin PO 5 mg HS PRN Administration INSOMNIA Methadone HCl 10 mg 12/29/17 10:00 Dolophine - PO 12/29/17 10:01 DAILY BRANDON Methadone HCl 5 mg 12/30/17 06:00 Dolophine - PO 12/30/17 06:01 DAILY@0600 BRANDON Nicotine 14 mg 12/25/17 17:30 12/28/17 10:51 Nicoderm Patch - TD Not Given DAILY BRANDON Nicotine Polacrilex 2 mg 12/25/17 17:22 12/28/17 12:53 Nicorette Gum - BC 2 mg Q2H PRN Administration NICOTINE REPLACEMENT RX Multivit/Folic Acid/Iron 1 tab 12/26/17 10:00 12/28/17 10:51 Vitamins ([facility]) - PO Not Given DAILY BRANDON Pseudoephedrine/Triprolidine 1 combo 12/25/17 17:22 Actifed - PO TID PRN NASAL CONGESTION Thiamine HCl 100 mg 12/25/17 22:00 12/27/17 23:51 Vitamin B1 - PO Not Given HS BRANDON Zolpidem Tartrate 10 mg 12/27/17 22:00 12/27/17 22:14 Ambien - PO 12/30/17 21:59 10 mg HS PRN Administration INSOMNIA Medication(s) Change(s): Mirtazapine 7.5 mg po hs is added to the regimen.Side effecst/benefits reviewed with the patient.Mr Zamudio agrees with this careplan. Current Side Effect: No Lab tests ordered: No Lab tests reviewed: Yes Provider note:: Referral from medical [employer] Sarahy.Met with patient.He confirmed persistent inability to fall + stay asleep.States that " ambien is not working ".Mr Zamudio aknowledges the effectiveness of seroquel but he still declines its use due to intolerable side effect (weight gain).Alternate hypnotic medications reviewed with patient.Agrees to a trial of mirtazapine.Will follow. Total face to face time:: 25 Mental Status Exam - Mental Status Exam Alert and Oriented to: Time, Place, Person Cognitive Function: Good Patient Appearance: Well Groomed Mood: Hopeful, Euthymic Affect: Appropriate, Normal Range Patient Behavior: Appropriate, Cooperative Speech Pattern: Clear Voice Loudness: Normal Thought Process: Intact, Goal Oriented Thought Disorder: Not Present Hallucinations: Denies Suicidal Ideation: Denies Homicidal Ideation: Denies Insight/Judgement: Fair Sleep: Poorly, Difficulty falling asleep Appetite: Good Muscle strength/Tone: Normal Gait/Station: Normal Psychiatric Treatment Plan - Problem List (1) Alcohol dependence with uncomplicated withdrawal Current Visit: Yes Comment: . (2) Opioid dependence with withdrawal Current Visit: Yes Comment: . (3) Sedative, hypnotic or anxiolytic dependence with withdrawal, uncomplicated Current Visit: Yes Comment: . (4) Cocaine dependence Current Visit: Yes Qualifiers: Substance use status: uncomplicated Qualified Code(s): F14.20 - Cocaine dependence, uncomplicated (5) Nicotine dependence Current Visit: Yes Qualifiers: Nicotine product type: cigarettes Substance use status: in withdrawal Qualified Code(s): F17.213 - Nicotine dependence, cigarettes, with withdrawal (6) Substance induced mood disorder Current Visit: Yes Comment: . (7) Insomnia Current Visit: Yes Qualifiers: Insomnia type: unspecified Qualified Code(s): G47.00 - Insomnia, unspecified Comment: .
[2017-12-28] MEDS ORDERED: MIRTAZAPINE 15 MG TABLET (FP) PO SCH (22:00)
[2017-12-28] MEDS: ZOLPIDEM TARTRATE 10 MG TABLET (PARK CARE ONLY) PO PRN (22:42)
[2017-12-28] MEDS: THIAMINE HCL 100 MG TABLET (FP) PO SCH (22:44)
[2017-12-29 09:24] VITALS: BP 99/57; PULSE 60; TEMP 97.7
[2017-12-29] MEDS: NICOTINE 14 MG/24 HOURS TOPICAL PATCH TD SCH (09:53)
[2017-12-29] MEDS: PRENATAL VITAMINS W/ FOLIC ACID TABLET (FP) PO SCH (09:53)
[2017-12-29] MEDS ORDERED: diazePAM 5 MG TABLET PO SCH (10:00)
[2017-12-29] MEDS ORDERED: METHADONE HCL 10 MG TABLET (FOR DETOX USE ONLY) PO SCH (10:00)
--- NOTE | 2017-12-29 10:01 | PN ---
[facility] Progress Note (SOAP) Subjective: PT MET WITH HIS COUNSELOR EDI SCHUSTER AND DISCUSSED HIS AFTERCARE PLANS. PT SCHEDULED TODAY WITH HIS PMD ZAMZAM KUMARI IN [place], [place] TO RESTART HIS SUBOXONE MAINTENANCE TREATMENT. PHONE:[phone]. ALERT O X 3. OOB WITH NO ACUTE DISTRESS. PT HAS BEEN REMINDED THAT HE NEEDS TO BE IN WITHDRAWAL TO TAKE SUBOXONE. OTHERWISE NEED TO WAIT A DAY OR TWO TO TAKE. PT VERBALIZED UNDERSTANDING AND REPORTS HE HAS PREVIOUS EXPERIENCE AND WILL BE MANAGED BY HIS PMD. Objective: 12/29/17 11:34 Vital Signs Temperature 97.7 F 12/29/17 09:23 Pulse Rate 60 12/29/17 09:23 Respiratory Rate 18 12/29/17 09:23 Blood Pressure 99/57 12/29/17 09:23 O2 Sat by Pulse Oximetry (%) Laboratory Last Values Urine Color [place] 12/28/17 15:05 Urine Appearance Clear 12/28/17 15:05 Urine pH 5.0 (5.0-8.0) 12/28/17 15:05 Ur Specific [place] 1.025 (1.001-1.035) 12/28/17 15:05 Urine Protein Negative (NEGATIVE) 12/28/17 15:05 Urine Glucose (UA) Negative (NEGATIVE) 12/28/17 15:05 Urine Ketones Negative (NEGATIVE) 12/28/17 15:05 Urine Blood Negative (NEGATIVE) 12/28/17 15:05 Urine Nitrite Negative (NEGATIVE) 12/28/17 15:05 Urine Bilirubin Negative (<2.0 mg/dL) 12/28/17 15:05 Urine Urobilinogen Negative mg/dL (0.2-1.0) 12/28/17 15:05 Ur Leukocyte Esterase Negative (NEGATIVE) 12/28/17 15:05 Urine WBC (Auto) 63 /hpf (3-5) 12/25/17 21:00 Urine RBC (Auto) 2 /hpf (0-3) 12/25/17 21:00 Ur Epithelial Cells Rare /HPF (FEW) 12/25/17 21:00 Urine Mucus Few 12/25/17 21:00 PT HAD REFUSED ALL LAB TESTING EXCEPT THE ABOVE URINE. (SEE NURSES NOTES) Assessment: 12/29/17 11:36 NAD Plan: D/C PT TODAY TO FOLLOW UP WITH TREATMENT SCHEDULED AT 5 PM TODAY.
--- NOTE | 2017-12-29 10:01 | DS ---
[facility] Detox Discharge Summary Admission Date: 12/25/17 Discharge Date: 12/29/17 - History Present History: Alcohol Dependence, Cocaine Dependence, Opioid Dependence, Sedative Dependence Additional Comments: PT HAS TO FOLLOW UP WITH HIS PMD DR. ZAMZAM GUTIERREZ IN [place], [place] TODAY AT 5 PM TO RE-INSTATE SUBOXONE TREATMENT(PHONE#: [phone]). ALERT O X 3. NAD. Pertinent Past History: ORI SEE DX BELOW - Physical Exam Results Vital Signs: Vital Signs Temperature 97.7 F 12/29/17 09:23 Pulse Rate 60 12/29/17 09:23 Respiratory Rate 18 12/29/17 09:23 Blood Pressure 99/57 12/29/17 09:23 O2 Sat by Pulse Oximetry (%) Pertinent Admission Physical Exam Findings: WITHDRAWAL SX Laboratory Last Values Urine Color Dkyellow 12/28/17 15:05 Urine Appearance Clear 12/28/17 15:05 Urine pH 5.0 (5.0-8.0) 12/28/17 15:05 Ur Specific [place] 1.025 (1.001-1.035) 12/28/17 15:05 Urine Protein Negative (NEGATIVE) 12/28/17 15:05 Urine Glucose (UA) Negative (NEGATIVE) 12/28/17 15:05 Urine Ketones Negative (NEGATIVE) 12/28/17 15:05 Urine Blood Negative (NEGATIVE) 12/28/17 15:05 Urine Nitrite Negative (NEGATIVE) 12/28/17 15:05 Urine Bilirubin Negative (<2.0 mg/dL) 12/28/17 15:05 Urine Urobilinogen Negative mg/dL (0.2-1.0) 12/28/17 15:05 Ur Leukocyte Esterase Negative (NEGATIVE) 12/28/17 15:05 Urine WBC (Auto) 63 /hpf (3-5) 12/25/17 21:00 Urine RBC (Auto) 2 /hpf (0-3) 12/25/17 21:00 Ur Epithelial Cells Rare /HPF (FEW) 12/25/17 21:00 Urine Mucus Few 12/25/17 21:00 REFUSED ALL LAB WORK EXCEPT UA ABOVE.(PLEASE SEE NURSES NOTES 12/26/17) - Treatment Hospital Course: Detox Protocol Followed, Detoxed Safely, Responded well, Discharged Condition Good - Medication Discharge Medications: Ambulatory Orders Quetiapine Fumarate [Seroquel] 100 mg PO HS #30 tablet 11/23/17 - Diagnosis (1) Alcohol dependence with uncomplicated withdrawal Status: Acute (2) Opioid dependence with withdrawal Status: Acute (3) Sedative, hypnotic or anxiolytic dependence with withdrawal, uncomplicated Status: Acute (4) Cocaine dependence Status: Acute Qualifiers: Substance use status: uncomplicated Qualified Code(s): F14.20 - Cocaine dependence, uncomplicated (5) Nicotine dependence Status: Acute Qualifiers: Nicotine product type: cigarettes Substance use status: in withdrawal Qualified Code(s): F17.213 - Nicotine dependence, cigarettes, with withdrawal - AMA Did Patient Leave Against Medical Advice: No
[2017-12-30] MEDS ORDERED: METHADONE HCL 5 MG TABLET (FOR DETOX USE ONLY) PO SCH (06:00)
== END 2017-12-29 10:35 | disposition home or self-care (01) | DRG 773 ==
LOC: YASAS 13:16 → Y3N 18:37
PROVIDERS: ADMIT Internal Medicine; ATTEND Internal Medicine
PROC: HZ2ZZZZ Detoxification Services for Substance Abuse Treatment (ICD-10-PCS; principal; 2017-12-25)
DX: F11.23 Opioid dependence with withdrawal (principal); F10.230 Alcohol dependence with withdrawal, uncomplicated; F13.230 Sedative, hypnotic or anxiolytic dependence with withdrawal, uncomplicated; F14.20 Cocaine dependence, uncomplicated; F17.210 Nicotine dependence, cigarettes, uncomplicated; F19.24 Other psychoactive substance dependence with psychoactive substance-induced mood disorder; G47.00 Insomnia, unspecified; B18.2 Chronic viral hepatitis C
CPT/HCPCS: 81003; 81015; 93005; 93010

== ENCOUNTER 2020-12-04 11:31 | Inpatient (IN) | payer OTHER ==
[2020-12-04 12:18] VITALS: BMI 26.6
[2020-12-04] MEDS ORDERED: MAGNESIUM CITRATE 300 ML BOTTLE PO PRN (15:12)
[2020-12-04] MEDS ORDERED: METHADONE HCL 10 MG TABLET (FOR DETOX USE ONLY) PO ONE (15:12)
[2020-12-04] MEDS ORDERED: IBUPROFEN 400 MG TABLET (FP) PO PRN (15:12)
[2020-12-04] MEDS ORDERED: ONDANSETRON *ODT* 4 MG TABLET SL PRN (15:12)
[2020-12-04] MEDS ORDERED: MAGNESIUM HYDROX 2400MG/30ML ORAL SUSPENSION 30 ML CUP PO PRN (15:12)
[2020-12-04] MEDS ORDERED: MENTHOL/PHENOL 1 EACH UD MM PRN (15:12)
[2020-12-04] MEDS ORDERED: MAG HYDROX/AL HYDROX/SIMETH 30 ML UNIT-DOSE CUP PO PRN (15:12)
[2020-12-04] MEDS ORDERED: ACETAMINOPHEN 325 MG TABLET (FP) PO PRN ×2 (15:12)
[2020-12-04] MEDS ORDERED: BISMUTH SUBSALICYLATE 262 MG/15 ML BTL PO PRN (15:12)
[2020-12-04] MEDS: NICOTINE 21 MG/24 HOURS TOPICAL PATCH TD SCH (16:11)
[2020-12-04 17:13] LABS: HEMATOCRIT 40.2 % (35.4-49); HEMOGLOBIN 13.2 GM/dL (11.7-16.9); MCH 29.9 pg (25.7-33.7); MCHC 32.9 g/dl (32.0-35.9); MEAN CELL VOLUME 90.7 fl (80-96); MEAN PLT VOLUME 7.8 fl (7.5-11.1); PLATELET COUNT 252 K/MM3 (134-434); RBC 4.43 M/mm3 (4.00-5.60); RDW 14.9 % (11.9-15.9)
[2020-12-04 17:15] LABS: POTASSIUM 4.1 mmol/L (3.5-5.1)
[2020-12-04 17:20] LABS: ALBUMIN 4.1 g/dl (3.4-5.0); BLOOD UREA NITROGEN 16.4 mg/dL (7-18); CALCIUM 9.4 mg/dL (8.5-10.1)
[2020-12-04 17:23] LABS: BILIRUBIN,TOTAL 0.3 mg/dL (0.2-1); TOT PROT 7.7 g/dl (6.4-8.2)
[2020-12-04 17:25] LABS: CREATININE 1.1 mg/dL (0.55-1.3)
[2020-12-04] MEDS: diazePAM 5 MG TABLET PO SCH ×2 (17:40→22:26)
[2020-12-04] MEDS: NICOTINE POLACRILEX 2 MG GUM BUC PRN (17:55)
[2020-12-04 18:12] LABS: HIV INTERPRETATION NEGATIVE (NEGATIVE)
[2020-12-04] MEDS: hydrOXYzine PAMOATE 25 MG CAPSULE (FP) PO SCH ×2 (18:15→22:26)
[2020-12-04] MEDS: THIAMINE HCL 100 MG TABLET (FP) PO SCH (22:26)
[2020-12-04] MEDS: MELATONIN 5 MG TABLETS PO SCH (22:26)
[2020-12-05] MEDS: diazePAM 5 MG TABLET PO SCH ×4 (05:22→22:13)
[2020-12-05] MEDS: hydrOXYzine PAMOATE 25 MG CAPSULE (FP) PO SCH ×3 (05:23→14:34)
[2020-12-05] MEDS: cloNIDine HCL 0.1 MG TABLET PO PRN ×2 (05:24→20:35)
[2020-12-05] MEDS: METHOCARBAMOL 500 MG TABLET PO PRN ×2 (05:24→22:15)
[2020-12-05] MEDS ORDERED: METHADONE HCL 10 MG TABLET (FOR DETOX USE ONLY) ONE (08:42)
[2020-12-05] MEDS ORDERED: METHADONE HCL 5 MG TABLET (FOR DETOX USE ONLY) ONE (08:43)
[2020-12-05] MEDS ORDERED: METHADONE (DETOX) 20 MG, METHADONE (DETOX) 5 MG PO ONE (10:00)
[2020-12-05] MEDS: PRENATAL VITAMINS W/ FOLIC ACID TABLET (FP) PO SCH (10:16)
[2020-12-05] MEDS: NICOTINE 21 MG/24 HOURS TOPICAL PATCH TD SCH (10:19)
[2020-12-05] MEDS: diazePAM 5 MG TABLET PO PRN ×2 (12:49→20:35)
[2020-12-05] MEDS ORDERED: hydrOXYzine PAMOATE 25 MG CAPSULE (FP) PO PRN (14:07)
[2020-12-05] MEDS: NICOTINE POLACRILEX 2 MG GUM BUC PRN (20:36)
[2020-12-05] MEDS: THIAMINE HCL 100 MG TABLET (FP) PO SCH (22:12)
[2020-12-05] MEDS: MELATONIN 5 MG TABLETS PO SCH (22:12)
[2020-12-06] MEDS: diazePAM 5 MG TABLET PO SCH ×3 (07:13→22:37)
[2020-12-06] MEDS ORDERED: METHADONE HCL 10 MG TABLET (FOR DETOX USE ONLY) PO ONE (10:00)
[2020-12-06] MEDS: NICOTINE 21 MG/24 HOURS TOPICAL PATCH TD SCH (10:16)
[2020-12-06] MEDS: cloNIDine HCL 0.1 MG TABLET PO PRN (10:16)
[2020-12-06] MEDS: PRENATAL VITAMINS W/ FOLIC ACID TABLET (FP) PO SCH (10:16)
[2020-12-06] MEDS: diazePAM 5 MG TABLET PO PRN (18:33)
[2020-12-06] MEDS: NICOTINE POLACRILEX 2 MG GUM BUC PRN (18:35)
[2020-12-06] MEDS: THIAMINE HCL 100 MG TABLET (FP) PO SCH (22:37)
[2020-12-06] MEDS: MELATONIN 5 MG TABLETS PO SCH (22:37)
[2020-12-06] MEDS: METHOCARBAMOL 500 MG TABLET PO PRN (22:38)
[2020-12-07] MEDS ORDERED: diazePAM 5 MG TABLET PO SCH (06:00)
[2020-12-07] MEDS ORDERED: METHADONE HCL 10 MG TABLET (FOR DETOX USE ONLY) ONE (09:07)
[2020-12-07] MEDS ORDERED: METHADONE HCL 5 MG TABLET (FOR DETOX USE ONLY) ONE (09:07)
[2020-12-07] MEDS ORDERED: METHADONE (DETOX) 10 MG, METHADONE (DETOX) 5 MG PO ONE (10:00)
[2020-12-07 10:42] VITALS: BP 141/82; PULSE 80; TEMP 98.2
[2020-12-08] MEDS ORDERED: diazePAM 5 MG TABLET PO ONE (06:00)
[2020-12-08] MEDS ORDERED: METHADONE HCL 10 MG TABLET (FOR DETOX USE ONLY) PO ONE (10:00)
[2020-12-09] MEDS ORDERED: METHADONE HCL 5 MG TABLET (FOR DETOX USE ONLY) PO ONE (06:00)
== END 2020-12-07 10:05 | disposition home or self-care (01) | DRG 773 ==
LOC: YASAS 11:31 → Y3N 15:03
PROVIDERS: ADMIT Allergy & Immunology; ATTEND Allergy & Immunology
PROC: HZ2ZZZZ Detoxification Services for Substance Abuse Treatment (ICD-10-PCS; principal; 2020-12-04)
DX: F11.23 Opioid dependence with withdrawal (principal); F10.230 Alcohol dependence with withdrawal, uncomplicated; F13.230 Sedative, hypnotic or anxiolytic dependence with withdrawal, uncomplicated; F14.20 Cocaine dependence, uncomplicated; F17.210 Nicotine dependence, cigarettes, uncomplicated; B18.2 Chronic viral hepatitis C; Z86.69 Personal history of other diseases of the nervous system and sense organs
CPT/HCPCS: 36415; 80053; 85027; 86780; 87389; C9803; J0735; U0003

== ENCOUNTER 2022-04-26 10:18 | Inpatient (IN) | payer OTHER ==
[2022-04-26 11:07] VITALS: RESP 18; BMI 28.1
[2022-04-26] MEDS ORDERED: IBUPROFEN 400 MG TABLET (FP) PO PRN (12:55)
[2022-04-26] MEDS ORDERED: DICYCLOMINE HCL 10 MG CAPSULE PO PRN (12:55)
[2022-04-26] MEDS ORDERED: NICOTINE POLACRILEX 2 MG GUM BUC PRN (12:55)
[2022-04-26] MEDS ORDERED: IBUPROFEN 600 MG TABLET (FP) PO PRN (12:55)
[2022-04-26] MEDS ORDERED: BISMUTH SUBSALICYLATE 524 MG/30 ML PO PRN (12:55)
[2022-04-26] MEDS ORDERED: NALOXONE HCL 0.4 MG/ML VIAL IM PRN (12:55)
[2022-04-26] MEDS ORDERED: MAGNESIUM HYDROX 2400MG/30ML ORAL SUSPENSION 30 ML CUP PO PRN (12:55)
[2022-04-26] MEDS ORDERED: METHOCARBAMOL 500 MG TABLET PO PRN (12:55)
[2022-04-26] MEDS ORDERED: ONDANSETRON *ODT* 4 MG TABLET SL PRN (12:55)
[2022-04-26] MEDS ORDERED: MAG HYDROX/AL HYDROX/SIMETH 30 ML UNIT-DOSE CUP PO PRN (12:55)
[2022-04-26] MEDS ORDERED: MAGNESIUM CITRATE 300 ML BOTTLE PO PRN (12:55)
[2022-04-26] MEDS ORDERED: BENZOCAINE/MENTHOL (CHLORASEPTIC ) LOZENGE MM PRN (12:55)
[2022-04-26] MEDS ORDERED: ACETAMINOPHEN 325 MG TABLET (FP) PO PRN ×2 (12:55)
[2022-04-26] MEDS ORDERED: LOPERAMIDE HCL 2 MG CAPSULE PO PRN (12:55)
[2022-04-26] MEDS: hydrOXYzine PAMOATE 25 MG CAPSULE (FP) PO SCH ×3 (13:59→23:54)
[2022-04-26] MEDS ORDERED: THIAMINE HCL 100 MG TABLET (FP) PO SCH (22:00)
[2022-04-26] MEDS ORDERED: MELATONIN 5 MG TABLETS PO SCH (22:00)
[2022-04-27] MEDS: hydrOXYzine PAMOATE 25 MG CAPSULE (FP) PO SCH ×2 (06:19→06:20)
[2022-04-27 09:20] VITALS: BP 152/91; PULSE 78; TEMP 97.5
[2022-04-27] MEDS ORDERED: NICOTINE 14 MG/24 HOURS TOPICAL PATCH TD SCH (10:00)
[2022-04-27] MEDS ORDERED: PRENATAL VITAMINS W/ FOLIC ACID TABLET (FP) PO SCH (10:00)
== END 2022-04-27 09:00 | disposition home or self-care (01) | DRG 773 ==
LOC: YASAS 10:18 → Y6N 13:07 → UNDOADMIN 13:07 → UNDODISIN 04-27 09:00
PROVIDERS: ADMIT Allergy & Immunology; ATTEND Surgery
PROC: HZ2ZZZZ Detoxification Services for Substance Abuse Treatment (ICD-10-PCS; principal; 2022-04-26)
DX: F10.230 Alcohol dependence with withdrawal, uncomplicated (principal); F11.20 Opioid dependence, uncomplicated; F13.20 Sedative, hypnotic or anxiolytic dependence, uncomplicated; F14.20 Cocaine dependence, uncomplicated; F17.210 Nicotine dependence, cigarettes, uncomplicated; B18.2 Chronic viral hepatitis C
CPT/HCPCS: C9803-CS; U0003; U0005